=== PATIENT | male | born 1970 | race Caucasian/White ===

== ENCOUNTER 2022-02-28 18:32 | Inpatient (IN) | payer MEDICAID ==
[~2022-02-28] VITALS: Ht 167.6 cm; Wt 72.6 kg
[~2022-02-28 18:32] MED LIST: CLIN-142 PO; GLIP10TA11 PO; LISI-209 PO; METF-518 PO
[2022-02-28 18:45] VITALS: BP_SYST 161
--- NOTE | 2022-02-28 19:02 | NUR ---
Patient BIB self, patient states he has had testicle swelling and penile swelling x 3 days. Patient has PMH DM, HTN. Placed onto monitor AOx4 in no acute distress.
--- NOTE | 2022-02-28 19:04 | NUR ---
#20G PIV to Left AC
--- NOTE | 2022-02-28 19:04 | NUR ---
Labs drawn and sent to lab
--- NOTE | 2022-02-28 19:06 | NUR ---
Closing Note Report given to incoming NOC RN, all cares endorsed.
--- NOTE | 2022-02-28 19:09 | NUR ---
Xray at bedside
[2022-02-28 19:16] LABS: BASOPHILS # (AUTO) 0.1 K/uL (0.0-0.2); EOSINOPHILS # (AUTO) 0.3 K/uL (0.0-0.4); EOSINOPHILS % (AUTO) 5.4 % (0.0-4.0); HEMATOCRIT 24.1 % (36-54); HEMOGLOBIN 8.2 g/dL (14.0-18.0); LYMPHOCYTES # (AUTO) 0.9 K/uL (1.0-5.5); LYMPHOCYTES % (AUTO) 14.6 % (20.5-51.5); MEAN CORPUSCULAR HEMOGLOBIN 29 pg (27-31); MEAN CORPUSCULAR HGB CONC 34 % (32-36); MEAN CORPUSCULAR VOLUME 85 fL (79.0-98.0); MONOCYTES # (AUTO) 0.8 K/uL (0.0-1.0); MONOCYTES % (AUTO) 12.9 % (1.7-9.3); NEUTROPHILS % (AUTO) 66.1 % (40.0-70.0); PLATELET COUNT (AUTO) 341 K/uL (130-430); RED BLOOD CELL COUNT(AUTO) 2.86 MIL/uL (4.2-6.2); RED CELL DISTRIBUTION WIDTH 15.7 % (9.0-15.0)
[2022-02-28 19:25] LABS: ANION GAP 4 (5-15); CALCIUM 8.3 mg/dL (8.4-11.0); CHLORIDE 100 mmol/L (98-107); CREATININE 2.16 mg/dL (0.55-1.30); GLUCOSE 254 mg/dL (70-99); POTASSIUM 4.3 mmol/L (3.5-5.1); UREA NITROGEN, BLOOD 25 mg/dL (8-21)
[2022-02-28 19:27] LABS: GFR AFRICAN AMERICAN 42 mL/min (>90)
[2022-02-28 19:34] LABS: ALANINE AMINOTRANSFERASE 49 U/L (12-78); ALBUMIN 2.3 g/dL (3.4-4.8); ASPARTATE AMINOTRANSFERASE 19 U/L (10-37); TOTAL BILIRUBIN 0.1 mg/dL (0.0-1.0)
--- NOTE | 2022-02-28 19:50 | NUR ---
ER at bedside examining patient.
--- NOTE | 2022-02-28 21:21 | NUR ---
ADMITTING ORDERS RECIEVED FR DR CATALAN VIA TELEPHONE. NOTEED & CARRIED OUT.
[2022-02-28] MEDS ORDERED: DEXTROSE 50% JECT 50 ML DISP.SYRIN IVP PRN (23:00)
--- NOTE | 2022-02-28 23:12 | NUR ---
Patient will be admitted to care of [facility]. Admitted to TELEMETRY unit. Will go to room 129B. Belongings list completed. Complete and up to date summary report printed. SBAR report given TO ISA EDGE at bedside with opportunity for questions.
[2022-02-28] MEDS ORDERED: ACETAMINOPHEN 325 MG TABLET PO PRN (23:45)
[2022-03-01] VITALS (7 sets, daily range): BP systolic 148–161
[2022-03-01] MEDS ORDERED: ONDANSETRON HCL 4 MG/2 ML VIAL IVP PRN
[2022-03-01] MEDS ORDERED: NALOXONE HCL 0.4 MG/ML AMP (NARCAN) IVP PRN ×2
[2022-03-01] MEDS ORDERED: HYDROcodone/ACETAMIN 5-325 MG TAB (NORCO/ VICODIN) PO PRN
[2022-03-01] MEDS ORDERED: HYDROcodone/ACETAMIN 10-325 MG TAB PO PRN
[2022-03-01] MEDS ORDERED: TEMAZEPAM 15 MG CAPSULE PO PRN
[2022-03-01] MEDS ORDERED: PIPERACILLIN/TAZOBACTAM 2.25 GM VIAL IV ONE (00:23)
[2022-03-01] MEDS: PIPERACILLIN/TAZO 2.25G/DEX-IS 50 ML IV SCH ×5 (00:42→23:14)
--- NOTE | 2022-03-01 01:48 | NUR ---
CONSULTATION PAGED/CALLED Reason for Consultation: CHF Person Who was Notified:SORIN Consulting Physician: ZAINAB Auto Carrier Driver Specialty: Ordering Physician: HOSSEIN
--- NOTE | 2022-03-01 01:54 | NUR ---
CONSULTATION PAGED/CALLED Reason for Consultation: TESTICULAR INFECTION Person Who was Notified: SORIN Consulting Physician: Ranjith READ Six Sigma Project Manager Specialty: Ordering Physician: HOSSEIN
--- NOTE | 2022-03-01 01:56 | NUR ---
CONSULTATION PAGED/CALLED Reason for Consultation: RENAL FAILURE Person Who was Notified: SORIN Consulting Physician: EVI Whitfield Specialty: Ordering Physician: HOSSEIN Addendum: 03/01/22 at 0203 by Yadira Vogt CNA SPOKE WITH JODY
[2022-03-01 05:51] LABS: BILIRUBIN,URINE NEGATIVE (NEGATIVE); BLOOD, URINE 1+ (NEGATIVE); CLARITY/URINE CLEAR (CLEAR); COLOR,URINE YELLOW (YELLOW); GLUCOSE,URINE 1+ (NEGATIVE); KETONES,URINE NEGATIVE (NEGATIVE); LEUKOCYTE ESTERASE ,URINE NEGATIVE (NEGATIVE); NITRITE, URINE NEGATIVE (NEGATIVE); PROTEIN URINE 1+ (NEGATIVE); UROBILINOGEN,URINE 0.2 (0.2-1.0)
[2022-03-01 06:13] LABS: BARBITURATE, URINE NEGATIVE (NEG <=200); BENZODIAZEPINE, URINE NEGATIVE (NEG <=150); CANNABINOID, URINE NEGATIVE (NEG <=50); COCAINE, URINE NEGATIVE (NEG <=150); METHAMPHETAMINES SCREEN,URINE NEGATIVE (NEG <=500); OPIATE, URINE NEGATIVE (NEG <=100); PHENCYCLIDINE SCREEN,URINE NEGATIVE (NEG <=25); UR TRICYCLIC ANTIDEPRESSANTS NEGATIVE (NEG <=300); URINE AMPHETAMINE NEGATIVE (NEG <=500); URINE METHADONE NEGATIVE (NEG <=200); URINE OXYCODONE SCREEN NEGATIVE (NEG <=100); URINE PROPOXYPHENE SCREEN NEGATIVE (NEG <=300)
[2022-03-01 06:16] LABS: BACTERIA,URINE RARE /HPF (None Seen); RBC,URINE 0-3 /HPF (0-3); WBC,URINE 0-3 /HPF (0-3)
[2022-03-01 06:17] LABS: MUCUS,URINE 1+ /LPF (None Seen)
[2022-03-01 06:35] LABS: BASOPHILS % (AUTO) 0.8 % (0.0-2.0); EOSINOPHILS # (AUTO) 0.3 K/uL (0.0-0.4); EOSINOPHILS % (AUTO) 5.8 % (0.0-4.0); HEMATOCRIT 23.1 % (36-54); HEMOGLOBIN 7.9 g/dL (14.0-18.0); LYMPHOCYTES # (AUTO) 0.8 K/uL (1.0-5.5); LYMPHOCYTES % (AUTO) 16.9 % (20.5-51.5); MEAN CORPUSCULAR HEMOGLOBIN 29 pg (27-31); MEAN CORPUSCULAR HGB CONC 34 % (32-36); MEAN CORPUSCULAR VOLUME 84 fL (79.0-98.0); MONOCYTES # (AUTO) 0.7 K/uL (0.0-1.0); MONOCYTES % (AUTO) 13.8 % (1.7-9.3); NEUTROPHILS # (AUTO) 3.1 K/uL (1.8-7.7); NEUTROPHILS % (AUTO) 62.7 % (40.0-70.0); PLATELET COUNT (AUTO) 324 K/uL (130-430); RED BLOOD CELL COUNT(AUTO) 2.74 MIL/uL (4.2-6.2); RED CELL DISTRIBUTION WIDTH 15.7 % (9.0-15.0)
[2022-03-01] MEDS: INSULIN REGULAR, HUMAN 100 UNITS/ML, 3 ML VIAL (humuLIN R) SUBCUT PRN ×3 (06:38→22:33)
[2022-03-01 07:00] LABS: CREATININE 2.22 mg/dL (0.55-1.30); POTASSIUM 4.1 mmol/L (3.5-5.1)
[2022-03-01 07:04] LABS: PROTHROMBIN TIME 10.3 SECS (9.5-12.5)
[2022-03-01 07:16] LABS: ALBUMIN 2.1 g/dL (3.4-4.8); FREE T4 (FREE THYROXINE) 0.9 ng/dl (0.8-1.5); PHOSPHORUS 4.3 mg/dL (2.7-4.5); THYROID STIMULATING HORMONE 3.04 uIu/mL (0.36-3.74); TOTAL BILIRUBIN 0.2 mg/dL (0.0-1.0)
[2022-03-01 07:34] LABS: TOTAL IRON BIND. CAPACITY 189 ug/dL (250-450)
--- NOTE | 2022-03-01 07:40 | NUR ---
OPEN NOTE Patient resting in bed. No notable signs of pain, distress or sob. Patient on room air with saturations at 95%. IV to L hand 20 G SL, patent. Patient will have CAT scan today around 8am. All needs met at this time, bed locked in lowest position, call light within reach, will continue to monitor.
[2022-03-01] MEDS: CLINDAMYCIN HCL 150 MG CAPSULE PO SCH ×3 (08:46→22:31)
--- NOTE | 2022-03-01 12:15 | NUR ---
PATIENT ROUNDS Patient resting in bed. No notable signs of pain, distress or sob. Patient on room air with saturations at 95%. IV to L hand 20 G SL, patent. All needs met at this time, bed locked in lowest position, call light within reach, will continue to monitor.
--- NOTE | 2022-03-01 15:56 | NUR ---
PATIENT ROUNDS Patient resting in bed. No notable signs of pain, distress or sob. Patient on room air with saturations at 95%. IV to L hand 20 G SL, patent. MD Dill asked for a baddler scan which was done and less than 182ml of urine noted in bladder. MD was made aware and no new orders given. All needs met at this time, bed locked in lowest position, call light within reach, will continue to monitor.
--- NOTE | 2022-03-01 16:45 | NUR ---
Wound Dressings Wound Dressings changed to bilateral lower legs.
[2022-03-01] MEDS: NACL 0.9% 1,000 ML IV SCH (16:52)
--- NOTE | 2022-03-01 18:53 | NUR ---
CLOSING NOTE Patient resting in bed. No notable signs of pain, distress or sob. Patient on room air with saturations at 95%. IV to L hand 20 G on infusion pump. All needs met at this time, bed locked in lowest position, call light within reach, will endorse to nightshift nurse.
--- NOTE | 2022-03-01 21:00 | NUR ---
URINE COLLECTED & SENT TO LAB / .
[2022-03-02 02:36] VITALS: BP_SYST 145
--- NOTE | 2022-03-02 03:23 | NUR ---
WOUND CARE implemented Left & Right lower legs multiple open tissue areas cleansed with NSS foam dressings applied / monitor .
[2022-03-02] MEDS: PIPERACILLIN/TAZO 2.25G/DEX-IS 50 ML IV SCH ×3 (06:05→18:31)
[2022-03-02 06:52] LABS: BASOPHILS # (AUTO) 0.1 K/uL (0.0-0.2); BASOPHILS % (AUTO) 1.1 % (0.0-2.0); EOSINOPHILS # (AUTO) 0.3 K/uL (0.0-0.4); EOSINOPHILS % (AUTO) 5.3 % (0.0-4.0); HEMATOCRIT 22.6 % (36-54); HEMOGLOBIN 7.9 g/dL (14.0-18.0); LYMPHOCYTES # (AUTO) 0.9 K/uL (1.0-5.5); LYMPHOCYTES % (AUTO) 16.8 % (20.5-51.5); MEAN CORPUSCULAR HEMOGLOBIN 29 pg (27-31); MEAN CORPUSCULAR HGB CONC 35 % (32-36); MEAN CORPUSCULAR VOLUME 84 fL (79.0-98.0); MONOCYTES # (AUTO) 0.6 K/uL (0.0-1.0); MONOCYTES % (AUTO) 12.1 % (1.7-9.3); NEUTROPHILS # (AUTO) 3.4 K/uL (1.8-7.7); NEUTROPHILS % (AUTO) 64.7 % (40.0-70.0); PLATELET COUNT (AUTO) 333 K/uL (130-430); RED BLOOD CELL COUNT(AUTO) 2.71 MIL/uL (4.2-6.2); RED CELL DISTRIBUTION WIDTH 15.5 % (9.0-15.0); WHITE BLOOD COUNT (AUTO) 5.3 K/uL (4.8-10.8)
[2022-03-02 07:02] LABS: CREATININE 2.15 mg/dL (0.55-1.30); PHOSPHORUS 4.6 mg/dL (2.7-4.5); POTASSIUM 4.2 mmol/L (3.5-5.1)
[2022-03-02 07:40] VITALS: BP_SYST 154
--- NOTE | 2022-03-02 07:40 | NUR ---
OPEN NOTE Patient resting in bed. No notable signs of pain, distress or sob. Patient on room air with saturations at 95%. IV to L hand 20 G infusion pump, patent. Call light within reach, bed locked in lowest position, all needs met, will continue to monitor.
[2022-03-02] MEDS: NACL 0.9% 1,000 ML IV SCH ×2 (07:54→21:23)
[2022-03-02] MEDS: CLINDAMYCIN HCL 150 MG CAPSULE PO SCH ×3 (08:34→21:22)
--- NOTE | 2022-03-02 10:50 | NUR ---
Dietitian Recommendations * Continue [facility] diet per MD order * Consider Glucerna BID ONS to supplement diet * Consider multivitamin, vitamin C to support healing * Check A1c PS, RD
[2022-03-02] MEDS: INSULIN REGULAR, HUMAN 100 UNITS/ML, 3 ML VIAL (humuLIN R) SUBCUT PRN ×3 (11:37→21:28)
[2022-03-02 12:00] VITALS: BP_SYST 145
--- NOTE | 2022-03-02 12:10 | NUR ---
PATIENT ROUNDS Patient resting in bed. No notable signs of pain, distress or sob. Patient on room air with saturations at 95%. IV to L hand 20 G on infusion pump, patent. All needs met at this time, bed locked in lowest position, call light within reach, will continue to monitor.
[2022-03-02 15:50] VITALS: BP_SYST 158
[2022-03-02] MEDS ORDERED: SOD FERRIC GLUC COMPLEX/SUC 125 MG in NS 100 ML IV SCH (17:00)
[2022-03-02] MEDS ORDERED: EPOETIN ALFA-EPBX 4,000 UNITS/ML VIAL SUBCUT SCH (17:00)
[2022-03-02 21:00] VITALS: BP_SYST 144
[2022-03-02] MEDS: LACTOBACILLUS RHAMNOSUS GG 1 CAP CAPSULE PO SCH (21:22)
--- NOTE | 2022-03-02 22:24 | NUR ---
Patient awake alert Family @ the bedside PT on room air chest movement symmetrical HOB elevated 02 SAT 95 %
[2022-03-03] MEDS: PIPERACILLIN/TAZO 2.25G/DEX-IS 50 ML IV SCH (00:25)
[2022-03-03 01:00] VITALS: BP_SYST 154
--- NOTE | 2022-03-03 03:28 | NUR ---
wound care implemented to both lower legs open skin areas , patient awake alert does ambulate & has history of Diabetes continue to monitor / .
--- NOTE | 2022-03-03 04:25 | NUR ---
PHONED PAGED DR Ranjith READ FOR LEVAQUIN PO CLARIFICATION .
--- NOTE | 2022-03-03 04:47 | NUR ---
spoke with DR JACEK BYRD , GIVE LEVAQUIN 250 MG PO DAILY FOR SEVEN DAYS ON DISCHARGE .
--- NOTE | 2022-03-03 04:49 | NUR ---
Patient using URINAL NEEDED NO DIFFICULTY clear yellow urine noted , tolerating .
[2022-03-03] MEDS: INSULIN REGULAR, HUMAN 100 UNITS/ML, 3 ML VIAL (humuLIN R) SUBCUT PRN (06:12)
[2022-03-03 06:56] LABS: BASOPHILS # (AUTO) 0.1 K/uL (0.0-0.2); BASOPHILS % (AUTO) 1.5 % (0.0-2.0); EOSINOPHILS # (AUTO) 0.3 K/uL (0.0-0.4); EOSINOPHILS % (AUTO) 5.4 % (0.0-4.0); HEMATOCRIT 23.7 % (36-54); HEMOGLOBIN 8.1 g/dL (14.0-18.0); LYMPHOCYTES # (AUTO) 0.8 K/uL (1.0-5.5); LYMPHOCYTES % (AUTO) 15.6 % (20.5-51.5); MEAN CORPUSCULAR HEMOGLOBIN 29 pg (27-31); MEAN CORPUSCULAR HGB CONC 34 % (32-36); MEAN CORPUSCULAR VOLUME 84 fL (79.0-98.0); MONOCYTES # (AUTO) 0.8 K/uL (0.0-1.0); MONOCYTES % (AUTO) 14.8 % (1.7-9.3); NEUTROPHILS # (AUTO) 3.3 K/uL (1.8-7.7); NEUTROPHILS % (AUTO) 62.7 % (40.0-70.0); PLATELET COUNT (AUTO) 342 K/uL (130-430); RED BLOOD CELL COUNT(AUTO) 2.83 MIL/uL (4.2-6.2); RED CELL DISTRIBUTION WIDTH 15.5 % (9.0-15.0); WHITE BLOOD COUNT (AUTO) 5.3 K/uL (4.8-10.8)
[2022-03-03 07:12] LABS: CALCIUM 8.2 mg/dL (8.4-11.0); CREATININE 2.18 mg/dL (0.55-1.30); POTASSIUM 3.8 mmol/L (3.5-5.1)
[2022-03-03] MEDS ORDERED: NEPHROVITE, (FOLIC ACID/VITAMIN B COMP W-C 1 TAB) PO SCH (09:00)
[2022-03-03] MEDS: LACTOBACILLUS RHAMNOSUS GG 1 CAP CAPSULE PO SCH (09:23)
[2022-03-03] MEDS: CLINDAMYCIN HCL 150 MG CAPSULE PO SCH ×2 (09:23→15:32)
[2022-03-03] MEDS ORDERED: levoFLOXacin 500 MG TABLET PO ONE (10:00)
[2022-03-03 12:34] VITALS: BP_SYST 159
--- NOTE | 2022-03-03 13:13 | NUR ---
Supervisor Smoke Control AIR FILLER recevied a referral from to see pt. for compliance with meds, after care and his family life situation. AIR FILLER used the [employer] for translation. Pt. was pleasant, informative and a good historian. Pt. stated from his last admittance in January, he was able to find follow up doctors care at [facility] in [place] on [address]. Pt. stated he just needed to go for follow up care one time. Pt. confirmed that his and daughter provided him with wound care twice daily. Pt. stated when he went to the doctors the clinic on Thursday, the doctor advised him to go to the hospital. AIR FILLER asked pt. how he was feeling. Pt. stated he was feeling better. AIR FILLER educated pt. on decreasing his chances of being readmitted. AIR FILLER asked pt. to keep up with his follow up apts. , take all meds as prescribed and follow a good eating regimen. Addendum: 03/03/22 at 1423 by Florina Richard AIR FILLER Supervisor Smoke Control AIR FILLER asked pt. in detail if he was taking all of his meds. Pt. stated he was and the doctor stated take all 3 meds and if you do well, you don't have to use insulin. Pt. stated he was taking all 3 meds, but when he called the pharmacy to get another med. he could not because they did not have the prescription at the time. When he called to follow up, he could not get a hold of anyone. AIR FILLER asked pt about his income. 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 Pt. is anemic and malnourished. Pt. was open to food [employer] resources and stated he would eat better. Pt. also needs a letter for work. AIR FILLER spoke to [place] to let her know pt. is confused. Pt stated he does not need insulin because said he needs to try these 3 meds and if he does well he does not need insulin. AIR FILLER asked Rn and to speak to pt. with the [employer] translation service. AIR FILLER shared pts. resources needs with pt to KAYCEE Dasilva who will assist.
[2022-03-03] MEDS: NACL 0.9% 1,000 ML IV SCH (15:21)
[2022-03-03 16:06] VITALS: BP_SYST 150
[2022-03-03 17:07] VITALS: BP_SYST 158
--- NOTE | 2022-03-03 17:43 | NUR ---
PATIENT DC ASSISTED BY HIS . ALL BELONGINGS TAKEN WITH THE PATIENT.
--- NOTE | 2022-03-04 08:36 | NUR ---
Dispo code 01
[2022-03-04] MEDS ORDERED: levoFLOXacin 250 MG TABLET PO SCH (09:00)
== END 2022-03-03 17:43 | disposition home or self-care (01) | DRG 501 ==
LOC: SED 18:32 → STU 21:17
PROVIDERS: ADMIT Internal Medicine; ATTEND Internal Medicine
DX: N45.3 Epididymo-orchitis (principal); N17.0 Acute kidney failure with tubular necrosis; E43 Unspecified severe protein-calorie malnutrition; D63.8 Anemia in other chronic diseases classified elsewhere; I13.0 Hypertensive heart and chronic kidney disease with heart failure and stage 1 through stage 4 chronic kidney disease, or unspecified chronic kidney disease; I50.30 Unspecified diastolic (congestive) heart failure; Z20.822 Contact with and (suspected) exposure to COVID-19; E11.22 Type 2 diabetes mellitus with diabetic chronic kidney disease; E11.65 Type 2 diabetes mellitus with hyperglycemia; K21.9 Gastro-esophageal reflux disease without esophagitis; E11.21 Type 2 diabetes mellitus with diabetic nephropathy; J91.8 Pleural effusion in other conditions classified elsewhere; N18.30 Chronic kidney disease, stage 3 unspecified; N13.9 Obstructive and reflux uropathy, unspecified; N31.9 Neuromuscular dysfunction of bladder, unspecified; Z68.25 Body mass index [BMI] 25.0-25.9, adult; Z79.899 Other long term (current) drug therapy; Z79.84 Long term (current) use of oral hypoglycemic drugs
CPT/HCPCS: 36415; 71045; 71250-TC; 76376; 76770; 76870-TC; 80048; 80053; 80061; 80307; 81000; 82043; 82550; 82570; 82607; 82962; 82977; 83036; 83540; 83550; 83605; 83735; 83880; 84100; 84302; 84439; 84443; 84484; 85025; 85610-TC; 85730-TC; 87040; 87081; 87086; 93005; 93306; 99285; G0378; J1815; J2543; J2916; Q5106

== ENCOUNTER 2022-03-19 18:53 | Inpatient (IN) | payer MEDICAID ==
[~2022-03-19] VITALS: Ht 182.9 cm; Wt 63.3 kg
--- NOTE | 2022-03-19 18:55 | NUR ---
Placed in room 01 . Placed on monitoring and evaluation advisor, blood pressure machine and pulse oximeter. To gown for exam. Side rails up. Report given to Riky MOSS .
[2022-03-19 19:00] VITALS: BP_SYST 188
--- NOTE | 2022-03-19 19:10 | NUR ---
MD DR LEWIS AT BEDSIDE
--- NOTE | 2022-03-19 19:21 | NUR ---
PT BIB FAMILY AWAKE AND ALTERED. AO X0. NO SOB. FAMILY STATES PT WAS SHAKEY AND ALTERED. ONE EPIOSODE OF VOMITING. NO KO. PT HAS HISTORY OF DM2, ON METFORMIN ONLY. UPON ARRIVAL BS WAS TOO ELEVATOR FOR GLUCOMETER TO REGISTER. BS WILL BE DRAWN BY LAB. BLOOD AND CULTURE TAKEN AT BEDSIDE.
--- NOTE | 2022-03-19 19:25 | NUR ---
PT HAS MULTIPLE SCABS ON BLE. OPEN WOUND ON LEFT LOWER EXTREMITY
[2022-03-19 19:30] LABS: BASOPHILS # (AUTO) 0.1 K/uL (0.0-0.2); BASOPHILS % (AUTO) 0.9 % (0.0-2.0); EOSINOPHILS # (AUTO) 0.3 K/uL (0.0-0.4); EOSINOPHILS % (AUTO) 3.9 % (0.0-4.0); HEMOGLOBIN 10.2 g/dL (14.0-18.0); LYMPHOCYTES % (AUTO) 13.9 % (20.5-51.5); MEAN CORPUSCULAR HEMOGLOBIN 29 pg (27-31); MEAN CORPUSCULAR HGB CONC 34 % (32-36); MEAN CORPUSCULAR VOLUME 86 fL (79.0-98.0); MONOCYTES # (AUTO) 0.6 K/uL (0.0-1.0); MONOCYTES % (AUTO) 8.2 % (1.7-9.3); NEUTROPHILS # (AUTO) 5.1 K/uL (1.8-7.7); NEUTROPHILS % (AUTO) 73.1 % (40.0-70.0); PLATELET COUNT (AUTO) 232 K/uL (130-430); RED CELL DISTRIBUTION WIDTH 16.5 % (9.0-15.0)
[2022-03-19] MEDS ORDERED: INSULIN REGULAR, HUMAN 10 UNITS/0.1 ML, 3 ML VIAL IVP ONE (19:30)
[2022-03-19] MEDS ORDERED: NACL 0.9% 1,000 ML IV ONE (19:30)
--- NOTE | 2022-03-19 19:40 | NUR ---
Pt off the unit for CT
[2022-03-19 19:42] LABS: BILIRUBIN,URINE NEGATIVE (NEGATIVE); BLOOD, URINE 2+ (NEGATIVE); CLARITY/URINE CLEAR (CLEAR); COLOR,URINE YELLOW (YELLOW); GLUCOSE,URINE 3+ (NEGATIVE); KETONES,URINE NEGATIVE (NEGATIVE); LEUKOCYTE ESTERASE ,URINE NEGATIVE (NEGATIVE); NITRITE, URINE NEGATIVE (NEGATIVE); PROTEIN URINE 2+ (NEGATIVE); UROBILINOGEN,URINE 0.2 (0.2-1.0)
--- NOTE | 2022-03-19 19:42 | NUR ---
PT TAKEN TO CT
[2022-03-19 19:46] LABS: ANION GAP 8 (5-15); CHLORIDE 93 mmol/L (98-107); CREATININE 2.46 mg/dL (0.55-1.30); UREA NITROGEN, BLOOD 26 mg/dL (8-21)
[2022-03-19 19:46] LABS: PROTHROMBIN TIME 10.1 SECS (9.5-12.5)
--- NOTE | 2022-03-19 19:50 | NUR ---
Clemencia ziegler in ED - 03/19/22 at 1956 by [email or web address] Pt returned from CT, stable, will cont to monitor
[2022-03-19 19:51] LABS: BACTERIA,URINE None Seen /HPF (None Seen); MUCUS,URINE None Seen /LPF (None Seen); WBC,URINE 0-3 /HPF (0-3)
--- NOTE | 2022-03-19 19:55 | NUR ---
PT BACK FROM CT. FAMILY AT BEDSIDE.
[2022-03-19 19:56] LABS: BARBITURATE, URINE NEGATIVE (NEG <=200); BENZODIAZEPINE, URINE NEGATIVE (NEG <=150); CANNABINOID, URINE NEGATIVE (NEG <=50); COCAINE, URINE NEGATIVE (NEG <=150); METHAMPHETAMINES SCREEN,URINE NEGATIVE (NEG <=500); OPIATE, URINE NEGATIVE (NEG <=100); PHENCYCLIDINE SCREEN,URINE NEGATIVE (NEG <=25); UR TRICYCLIC ANTIDEPRESSANTS NEGATIVE (NEG <=300); URINE AMPHETAMINE NEGATIVE (NEG <=500); URINE METHADONE NEGATIVE (NEG <=200); URINE OXYCODONE SCREEN NEGATIVE (NEG <=100); URINE PROPOXYPHENE SCREEN NEGATIVE (NEG <=300)
[2022-03-19 20:02] LABS: ALANINE AMINOTRANSFERASE 22 U/L (12-78); ALBUMIN 3.3 g/dL (3.4-4.8); ASPARTATE AMINOTRANSFERASE 16 U/L (10-37); C-REACTIVE PROTEIN QUANT 1.2 mg/dL (0-0.5); TOTAL BILIRUBIN 0.2 mg/dL (0.0-1.0)
[2022-03-19 20:03] LABS: GFR AFRICAN AMERICAN 36 mL/min (>90); GLUCOSE 701 mg/dL (70-99)
[2022-03-19 20:04] LABS: ACETAMINOPHEN < 1 ug/mL (1-30); ALCOHOL, BLOOD < 3 mg/dL (<10)
--- NOTE | 2022-03-19 20:14 | NUR ---
MD DR LEWIS AWARE OF WOUND ON R LEG, ORDER FOR BACTITRACIN AND DRESSING CHANGE CARRIED OUT BY EMT.
[2022-03-19] MEDS ORDERED: BACITRACIN 1 GM OINT TP ONE (20:18)
[2022-03-19 20:32] LABS: ACETONE, SERUM NEGATIVE (NEGATIVE)
--- NOTE | 2022-03-19 20:48 | NUR ---
Admit bed requested Patient will be admitted to care of Dr Mccarthy.. Admitted to Tele unit. Diagnosis Diabetes,Pneumonia Inpatient (Yes or No) yes Observation (Yes or No) No Orientation concerns or request close to nursing station (Yes or No) Yes Covid Status pending On vent or bipap , N/A Isolation requirements N/A Needs a sitter N/A From Home (Yes or if No enter name of facility) YES Requires Dialysis (Yes or No) No Med Rec Completed (Yes of No) unknown
[2022-03-19] MEDS ORDERED: cloNIDine HCL 0.1 MG TABLET PO PRN (21:15)
[2022-03-19] MEDS ORDERED: NALOXONE HCL 0.4 MG/ML AMP (NARCAN) IVP PRN ×2 (22:00)
[2022-03-19] MEDS: NORMAL SALINE 5 ML DISP.SYRIN IVF SCH (22:00)
[2022-03-19] MEDS ORDERED: ONDANSETRON HCL 4 MG/2 ML VIAL IVP PRN (22:00)
[2022-03-19] MEDS ORDERED: HYDROcodone/ACETAMIN 10-325 MG TAB PO PRN (22:00)
[2022-03-19] MEDS ORDERED: HYDROcodone/ACETAMIN 5-325 MG TAB (NORCO/ VICODIN) PO PRN (22:00)
[2022-03-19] MEDS ORDERED: ACETAMINOPHEN 325 MG TABLET PO PRN (22:00)
[2022-03-19] MEDS: NACL 0.9% 1,000 ML IV SCH (22:00)
--- NOTE | 2022-03-19 22:46 | NUR ---
Patient will be admitted to care of DR HERNANDEZ. Admitted to TELE unit. Will go to room 105A. Belongings list completed. Complete and up to date summary report printed. SBAR report to be given at bedside with opportunity for questions.
[2022-03-19 22:48] VITALS: BP_SYST 179
--- NOTE | 2022-03-19 22:50 | NUR ---
ADMISSION NOTE Received patient from ER via gurney. Patient admitted with diagnosis of DIABETES, PNEUMONIA. Patient is awake, alert, oriented X 1.Patient oriented to hospital room, call light, toileting, pain management and safety-teach back done. Patient informed that their room number is 105A. Personal belongings checked and Belongings List documented. Call light within reach.
[2022-03-19 22:53] VITALS: BP_SYST 179
--- NOTE | 2022-03-19 23:13 | NUR ---
SHELLY HARTLEY (SON) CELL# [phone]
[2022-03-19] MEDS ORDERED: FLU VACC QS2022-23(6MOS UP)/PF 0.5 ML/SYR SYRINGE I.M. PRN (23:15)
[2022-03-20] VITALS (19 sets, daily range): BP systolic 111–170
--- NOTE | 2022-03-20 00:19 | NUR ---
PAGED : DR Jacobo RAMOS CALLED TO NOTIFY THE PTS BP AND BS LEVEL ; PTS BS IS 500 PER PRIMARY RN . BP IS 182/101 , CALLED BACK , NOTIFIED MD PTS BP AND BS , ALSO INFORMED THAT PT RECEIVED CLONIDINE 0.2 MG IN THE ER AT 2118 AND INSULIN REGULAR IV 10 UNITS AT 1952 . ORDERED TO CHANGE ACCUCHECK Q6HRS AND START NOW THE COVERAGE PER ORDER ,VERIFIED WITH MD - PER ORDER PT WILL BE GETTING 12 UNITS OF REGULAR INSULIN SUBCUTANEOUS . ORDERED OK TO GIVE 12 UNITS REGULAR INSULIN SUBCUTANEOUS NOW. ALSO ORDERED HYDRALAZINE 50 MG PO Q6HRS FOR SBP ABOVE 150 , INFORMED MD THAT PT IS VERY CONFUSED AND MIGHT NOT BE ABLE TO TAKE PO AT THIS TIME . ORDERED HYDRALAZINE 10 MG IV PUSH Q6HRS PRN FOR SBP ABOVE 150 . BOTH ORDERS VERIFIED AGAIN WITH , ORDER ENTERED AND NOTIFIED PRIMARY RN .
[2022-03-20] MEDS: INSULIN REGULAR, HUMAN 100 UNITS/ML, 3 ML VIAL (humuLIN R) SUBCUT PRN ×2 (00:42→05:38)
[2022-03-20] MEDS: hydrALAZINE HCL 20 MG/ML VIAL IVP PRN ×2 (00:52→06:49)
--- NOTE | 2022-03-20 01:25 | NUR ---
PATIENT REMAIN CONFUSED, BLOOD SUGAR REMAIN UNDER CONTROL. PATIENT HAS BOWEL MOVEMENT. PATIENT TEMPERATURE IN 101.3
[2022-03-20 01:36] LABS: BASOPHILS # (AUTO) 0.1 K/uL (0.0-0.2); BASOPHILS % (AUTO) 0.8 % (0.0-2.0); EOSINOPHILS # (AUTO) 0.1 K/uL (0.0-0.4); EOSINOPHILS % (AUTO) 0.6 % (0.0-4.0); HEMATOCRIT 25.5 % (36-54); HEMOGLOBIN 8.7 g/dL (14.0-18.0); LYMPHOCYTES # (AUTO) 0.9 K/uL (1.0-5.5); LYMPHOCYTES % (AUTO) 9.3 % (20.5-51.5); MEAN CORPUSCULAR HEMOGLOBIN 29 pg (27-31); MEAN CORPUSCULAR HGB CONC 34 % (32-36); MEAN CORPUSCULAR VOLUME 85 fL (79.0-98.0); MONOCYTES # (AUTO) 0.6 K/uL (0.0-1.0); MONOCYTES % (AUTO) 6.5 % (1.7-9.3); NEUTROPHILS # (AUTO) 8.1 K/uL (1.8-7.7); NEUTROPHILS % (AUTO) 82.8 % (40.0-70.0); PLATELET COUNT (AUTO) 201 K/uL (130-430); RED BLOOD CELL COUNT(AUTO) 3.01 MIL/uL (4.2-6.2); RED CELL DISTRIBUTION WIDTH 16.4 % (9.0-15.0); WHITE BLOOD COUNT (AUTO) 9.8 K/uL (4.8-10.8)
[2022-03-20 01:57] LABS: CALCIUM 8.7 mg/dL (8.4-11.0); CREATININE 2.18 mg/dL (0.55-1.30); PHOSPHORUS 3.1 mg/dL (2.7-4.5)
[2022-03-20] MEDS ORDERED: ACETAMINOPHEN 650 MG SUPP.RECT RC PRN (02:00)
[2022-03-20] MEDS ORDERED: INSULIN GLARGINE 100 UNITS/ML, 10 ML VIAL SUBCUT ONE (02:00)
--- NOTE | 2022-03-20 02:13 | NUR ---
HIGH ALERT NOTE: Called Dr.A Mccarthy back at [phone] identified within the medical roster to verify physician authenticity.
[2022-03-20] MEDS ORDERED: PIPERACILLIN/TAZO 3.375/DEX-IS 50 ML IV SCH ×2 (04:30→06:45)
--- NOTE | 2022-03-20 05:00 | NUR ---
RECEIVED PATIENT FROM MENDEL MOSS. PATIENT IS LETHARGIC BUT WILL OPEN EYES TO HIS NAME BEING CALLED. TEMPERATURE WAS 99.7 AXILLARY AND BG 324. PATIENT HAS WOUNDS AND I WILL ENDORSE TO THE DAY SHIFT. FOAM DRESSING PLACED ON COCCYX FOR PREVENTIVE MEASURES, NO WOUND ON COCCYX. 2 L NC. LEFT AC 18G AND RIGHT AC 20 G, WITH NS RUNNING AT 100 ML/HR. PATIENT ON CCHO DIET. PATIENT HAS A PARR DRAINAGE TO GRAVITY. BED IS AT THE LOWEST LEVEL, BRAKES ARE LOCKED, SUCTION IS WORKING, 3 SIDE RAILS UP, CALL LIGHT WITHIN REACH. EDUCATED PATIENT NOT TO GET UP WITHOUT ASSISTS.
--- NOTE | 2022-03-20 05:22 | NUR ---
CONSULTATION PAGED/CALLED Reason for Consultation: CARYN Person Who was Notified: NICOLE Consulting Physician: ROSARIO Toll Test Desk Worker Specialty: Ordering Physician: RICHARD
--- NOTE | 2022-03-20 05:25 | NUR ---
GIVEN REPORT TO MERRY THE RN. I HAVE ALSO INFORMED THAT NURSE ABOUT PATIENT WOUNDS ON THE LEG NEEDS TO BE PHOTOGRAPH.
--- NOTE | 2022-03-20 05:29 | NUR ---
PT TRANSFERRED TO ICU BED 3 AND REPORT WAS GIVEN TO MERRY
--- NOTE | 2022-03-20 05:35 | NUR ---
CONSULTATION PAGED/CALLED Reason for Consultation: HYPERTENSION Person Who was Notified: DR. LANE VIA TEXT Consulting Physician: DR. LANE Center Machine Set Up Operator Specialty: CARDIO Ordering Physician: KELLY RAMOS
[2022-03-20] MEDS: NORMAL SALINE 5 ML DISP.SYRIN IVF SCH ×3 (05:39→21:45)
--- NOTE | 2022-03-20 05:57 | NUR ---
CONSULTATION PAGED/CALLED Reason for Consultation: DIABETIES, PNA Person Who was Notified: DR. VENTURA Consulting Physician: RINA QUINTANA Director Account Management Specialty: Ordering Physician: RICHARD
[2022-03-20] MEDS ORDERED: METF-381 PO (07:10)
[2022-03-20] MEDS ORDERED: POTASSIUM CHLORIDE 20 MEQ/PKT PACKET PO ONE (08:15)
[2022-03-20] MEDS ORDERED: METOPROLOL SUCCINATE 25 MG TAB.SR.24H (TOPROL XL) PO ONE (08:15)
[2022-03-20] MEDS ORDERED: amLODIPine BESYLATE 5 MG TABLET PO ONE (08:15)
[2022-03-20] MEDS ORDERED: POTASSIUM CHLORIDE 20 MEQ/PKT PACKET ONE (09:17)
[2022-03-20] MEDS ORDERED: TOPIRAMATE 25 MG TABLET(TOPAMAX) ONE (09:18)
[2022-03-20] MEDS: NACL 0.9% 1,000 ML IV SCH ×2 (09:27→18:43)
[2022-03-20] MEDS: AZITHROMYCIN 500 MG in NS 250 ML IV SCH (14:16)
--- NOTE | 2022-03-20 15:02 | NUR ---
Called Dr. Veronica Mahmood with a consult, he will be here today after 1700
--- NOTE | 2022-03-20 18:51 | NUR ---
BOB MYLES REGISTRY NURSE IS IN CHARGE OF THIS PATIENT/PT IS SLIGHTLY DISORIENTED/BUT FOLLOWS COMMANDS AND SMILING/VS STABLE, AFEBRILE BUT 3 LARGE WOUNDS ON RIGHT LEG/PT WOUNDS CLEANED, DRESSED AND PHOTOGRAPHED/PT SAYS HE GOT THEM FROM SCRATCHING//MW
[2022-03-20] MEDS ORDERED: LEVOFLOXACIN 250 MG/D5W 50 ML IV SCH (21:00)
[2022-03-21] VITALS (20 sets, daily range): BP systolic 112–165
--- NOTE | 2022-03-21 03:30 | NUR ---
CHANGE IN CAREGIVER Leti to assume care of Pt.
[2022-03-21 06:58] LABS: BASOPHILS # (AUTO) 0.1 K/uL (0.0-0.2); BASOPHILS % (AUTO) 0.7 % (0.0-2.0); EOSINOPHILS # (AUTO) 0.2 K/uL (0.0-0.4); EOSINOPHILS % (AUTO) 2.9 % (0.0-4.0); HEMATOCRIT 25.7 % (36-54); HEMOGLOBIN 8.8 g/dL (14.0-18.0); LYMPHOCYTES % (AUTO) 12.8 % (20.5-51.5); MEAN CORPUSCULAR HEMOGLOBIN 29 pg (27-31); MEAN CORPUSCULAR HGB CONC 34 % (32-36); MEAN CORPUSCULAR VOLUME 84 fL (79.0-98.0); MONOCYTES # (AUTO) 0.8 K/uL (0.0-1.0); MONOCYTES % (AUTO) 10.1 % (1.7-9.3); NEUTROPHILS # (AUTO) 5.7 K/uL (1.8-7.7); NEUTROPHILS % (AUTO) 73.5 % (40.0-70.0); PLATELET COUNT (AUTO) 190 K/uL (130-430); RED BLOOD CELL COUNT(AUTO) 3.07 MIL/uL (4.2-6.2); RED CELL DISTRIBUTION WIDTH 16.8 % (9.0-15.0); WHITE BLOOD COUNT (AUTO) 7.8 K/uL (4.8-10.8)
[2022-03-21 07:02] LABS: ALBUMIN 2.4 g/dL (3.4-4.8); C-REACTIVE PROTEIN QUANT 0.8 mg/dL (0-0.5); CALCIUM 8.1 mg/dL (8.4-11.0); CREATININE 1.73 mg/dL (0.55-1.30); PHOSPHORUS 3.8 mg/dL (2.7-4.5); TOTAL BILIRUBIN 0.2 mg/dL (0.0-1.0)
--- NOTE | 2022-03-21 07:20 | NUR ---
Opening Received report on pt. Pt AOx3, with confusion, in no signs of pain or distress on room air. IV site intact, patent, no infiltration noted. Dale in place draining urine to gravity, incontinent of bowel.
[2022-03-21] MEDS: NORMAL SALINE 5 ML DISP.SYRIN IVF SCH ×3 (08:02→21:16)
[2022-03-21] MEDS: METOPROLOL SUCCINATE 25 MG TAB.SR.24H (TOPROL XL) PO SCH (08:10)
[2022-03-21] MEDS: NACL 0.9% 1,000 ML IV SCH ×3 (08:14→23:01)
[2022-03-21] MEDS ORDERED: amLODIPine BESYLATE 5 MG TABLET PO ONE (08:15)
[2022-03-21 08:50] LABS: ERYTHROCYTE SEDIMENTATION RATE 23 MM/HR (0-15)
[2022-03-21] MEDS: cloNIDine HCL 0.1 MG TABLET PO SCH ×2 (08:53→21:23)
[2022-03-21] MEDS ORDERED: amLODIPine BESYLATE 5 MG TABLET PO SCH (09:00)
--- NOTE | 2022-03-21 09:02 | NUR ---
Page out to Dr. Mao for critical potassium 2.9. Spoke with exchange.
[2022-03-21] MEDS ORDERED: KCL 40 mEq in 100 mL (PREMIX) 100 ML IV ONE (09:30)
--- NOTE | 2022-03-21 09:30 | NUR ---
Dr. Mao and Dr. Mccarthy rounding on pt. Both aware of critical lab value, new orders made.
[2022-03-21] MEDS ORDERED: POTASSIUM CHLORIDE 40 MEQ, LIDOCAINE JECT 2% PF 100 MG 50 MG in NS 250 ML IV ONE (10:30)
[2022-03-21] MEDS ORDERED: POTASSIUM CHLORIDE 40 MEQ in NS 250 ML IV ONE (11:00)
[2022-03-21] MEDS: INSULIN REGULAR, HUMAN 100 UNITS/ML, 3 ML VIAL (humuLIN R) SUBCUT PRN ×2 (12:20→17:16)
[2022-03-21] MEDS: AZITHROMYCIN 500 MG in NS 250 ML IV SCH (13:11)
--- NOTE | 2022-03-21 14:00 | NUR ---
Wound care and dressing changes done, pt tolerated well.
--- NOTE | 2022-03-21 17:37 | NUR ---
Pt ambulate to toilet with steady gait.
--- NOTE | 2022-03-21 19:14 | NUR ---
Endorsed plan of care to oncoming RN.
--- NOTE | 2022-03-21 21:10 | NUR ---
Transferred patient to room 117B telemetry via gurney. Report given to Mackenzie RN. Patient tolerated well.
[2022-03-22 01:13] VITALS: BP_SYST 120
[2022-03-22] MEDS: NORMAL SALINE 5 ML DISP.SYRIN IVF SCH ×3 (05:01→22:04)
--- NOTE | 2022-03-22 05:31 | NUR ---
rn notes patient remainson room air,no sob noted, VSS. Last BS 172, will wait for breakfast before covering with insulin. Plan is to IV abx atthistime. Urine culture results pending.
[2022-03-22 07:10] LABS: ANION GAP 5 (5-15); C-REACTIVE PROTEIN QUANT < 0.2 mg/dL (0-0.5); CHLORIDE 105 mmol/L (98-107); GLUCOSE 183 mg/dL (70-99); PHOSPHORUS 4.4 mg/dL (2.7-4.5); UREA NITROGEN, BLOOD 28 mg/dL (8-21)
[2022-03-22 07:18] LABS: GFR AFRICAN AMERICAN 55 mL/min (>90)
--- NOTE | 2022-03-22 07:19 | NUR ---
Report received from retail shift leader RN for continuity of care. Patient stable condition.
[2022-03-22 08:00] VITALS: BP_SYST 139
[2022-03-22] MEDS ORDERED: POTASSIUM CHLORIDE 40 MEQ in NS 250 ML IV ONE ×2 (08:15→09:00)
[2022-03-22 08:36] LABS: ERYTHROCYTE SEDIMENTATION RATE 19 MM/HR (0-15)
[2022-03-22 08:40] LABS: BASOPHILS % (AUTO) 0.7 % (0.0-2.0); EOSINOPHILS # (AUTO) 0.2 K/uL (0.0-0.4); EOSINOPHILS % (AUTO) 4.9 % (0.0-4.0); HEMATOCRIT 24.5 % (36-54); HEMOGLOBIN 8.5 g/dL (14.0-18.0); LYMPHOCYTES # (AUTO) 0.9 K/uL (1.0-5.5); LYMPHOCYTES % (AUTO) 18.7 % (20.5-51.5); MEAN CORPUSCULAR HEMOGLOBIN 29 pg (27-31); MEAN CORPUSCULAR HGB CONC 35 % (32-36); MEAN CORPUSCULAR VOLUME 83 fL (79.0-98.0); MONOCYTES # (AUTO) 0.5 K/uL (0.0-1.0); MONOCYTES % (AUTO) 9.6 % (1.7-9.3); NEUTROPHILS # (AUTO) 3.4 K/uL (1.8-7.7); NEUTROPHILS % (AUTO) 66.1 % (40.0-70.0); PLATELET COUNT (AUTO) 199 K/uL (130-430); RED BLOOD CELL COUNT(AUTO) 2.96 MIL/uL (4.2-6.2); RED CELL DISTRIBUTION WIDTH 16.4 % (9.0-15.0)
[2022-03-22 08:55] LABS: WHITE BLOOD COUNT (AUTO) 5.1 K/uL (4.8-10.8)
[2022-03-22] MEDS: cloNIDine HCL 0.1 MG TABLET PO SCH ×2 (09:52→22:03)
[2022-03-22] MEDS: METOPROLOL SUCCINATE 25 MG TAB.SR.24H (TOPROL XL) PO SCH (09:52)
[2022-03-22] MEDS: amLODIPine BESYLATE 10 MG TABLET PO SCH (09:53)
[2022-03-22] MEDS: INSULIN REGULAR, HUMAN 100 UNITS/ML, 3 ML VIAL (humuLIN R) SUBCUT PRN ×3 (09:54→17:58)
[2022-03-22 11:34] VITALS: BP_SYST 137
[2022-03-22] MEDS: NACL 0.9% 1,000 ML IV SCH (12:05)
[2022-03-22] MEDS: AZITHROMYCIN 500 MG in NS 250 ML IV SCH (13:00)
[2022-03-22 15:32] VITALS: BP_SYST 132
--- NOTE | 2022-03-22 15:52 | NUR ---
Patient resting at the moment. No distress noted.
--- NOTE | 2022-03-22 18:43 | NUR ---
Report given to school cafeteria head cook RN for continuity of care. Patient stable.
--- NOTE | 2022-03-22 19:20 | NUR ---
Opening note Received patient awake, AOx4. Resting in bed, no distress and non labored breathing on room air. He watching t.v and talking with visitor at bedside. Presently denies pain. IVF and K-rider both infusing via IV to RAC and other to LAC. He has thibodeaux catheter drainage bag to gravity. Bed is locked in lowest position, side rails up 2x, call light w/in reach and turned on bed alarm. Updated board.
[2022-03-22 20:00] VITALS: BP_SYST 117
--- NOTE | 2022-03-22 22:45 | NUR ---
Wound care Provided dressing changes; wound care to wounds on lower extremities. Updated notes on MST assessment. Explained procedure to patient and he was in agreement and cooperative. Denies pain, tolerated.
[2022-03-23 00:30] VITALS: BP_SYST 120
--- NOTE | 2022-03-23 00:45 | NUR ---
Fingerstick BS Obtained result of 226 mg/dL and administered Regular insulin per sliding scale. IVF fluids empty, hung new bag of NS and infusing at 50ml/hr as ordered. Infusing well via RAC, no s/sx of infiltration.
[2022-03-23] MEDS: INSULIN REGULAR, HUMAN 100 UNITS/ML, 3 ML VIAL (humuLIN R) SUBCUT PRN ×3 (00:48→12:29)
[2022-03-23] MEDS: NACL 0.9% 1,000 ML IV SCH (00:51)
--- NOTE | 2022-03-23 04:40 | NUR ---
rounds Resting w/ eyes closed. Even non labored breathing. Safety precautions in place
[2022-03-23] MEDS: NORMAL SALINE 5 ML DISP.SYRIN IVF SCH ×2 (05:49→13:30)
--- NOTE | 2022-03-23 05:56 | NUR ---
Fingerstick BS Obtained result of 196 mg/dL and administered Regular insulin per sliding scale. Denies pain, has no further needs.
--- NOTE | 2022-03-23 07:30 | NUR ---
RECEIVED PT FROM ISA MOORE. PT IS AAOX4. NORMAL S1S2 NOTED. RESP E/U. ON R/A. ABDOMEN SOFT, NONTENDER, NONDISTENDED. BOWEL SOUNDS ACTIVE. DENIES N/V/D/C. DISTAL PULSES NORMAL. SKIN WARM, DRY. PT HAS LLE WOUND AND RLL 2 WOUNDS COVERED WITH CDI DRESSING. NO PERIPHERAL EDEMA. IV CATH TO RAC 22 G WITH NS RUNNING AT 50MLS/HOUR. LAC 20G S/L. FLUSHED, PATENT. BOTH SITES CDI, WNL. PT DENIES PAIN. CALL LIGHT WITHIN REACH. BED IN LOWEST POSITION.
[2022-03-23 07:34] LABS: ALANINE AMINOTRANSFERASE 17 U/L (12-78); ALBUMIN 2.3 g/dL (3.4-4.8); ANION GAP 8 (5-15); ASPARTATE AMINOTRANSFERASE 15 U/L (10-37); CALCIUM 7.8 mg/dL (8.4-11.0); CHLORIDE 105 mmol/L (98-107); CREATININE 1.61 mg/dL (0.55-1.30); GLUCOSE 215 mg/dL (70-99); PHOSPHORUS 4.2 mg/dL (2.7-4.5); UREA NITROGEN, BLOOD 27 mg/dL (8-21)
[2022-03-23 07:43] LABS: GFR AFRICAN AMERICAN 58 mL/min (>90)
[2022-03-23 07:44] LABS: C-REACTIVE PROTEIN QUANT < 0.2 mg/dL (0-0.5); TOTAL BILIRUBIN < 0.1 mg/dL (0.0-1.0)
[2022-03-23 08:00] VITALS: BP_SYST 155
[2022-03-23] MEDS: METOPROLOL SUCCINATE 25 MG TAB.SR.24H (TOPROL XL) PO SCH (08:38)
[2022-03-23] MEDS: amLODIPine BESYLATE 10 MG TABLET PO SCH (08:39)
[2022-03-23] MEDS: cloNIDine HCL 0.1 MG TABLET PO SCH (08:40)
[2022-03-23 08:43] LABS: EOSINOPHILS # (AUTO) 0.2 K/uL (0.0-0.4); EOSINOPHILS % (AUTO) 5.3 % (0.0-4.0); HEMATOCRIT 25.3 % (36-54); LYMPHOCYTES % (AUTO) 22.5 % (20.5-51.5); MEAN CORPUSCULAR HEMOGLOBIN 30 pg (27-31); MEAN CORPUSCULAR HGB CONC 35 % (32-36); MONOCYTES # (AUTO) 0.6 K/uL (0.0-1.0); MONOCYTES % (AUTO) 12.6 % (1.7-9.3); NEUTROPHILS # (AUTO) 2.6 K/uL (1.8-7.7); NEUTROPHILS % (AUTO) 58.6 % (40.0-70.0); PLATELET COUNT (AUTO) 207 K/uL (130-430); RED BLOOD CELL COUNT(AUTO) 2.98 MIL/uL (4.2-6.2); RED CELL DISTRIBUTION WIDTH 16.9 % (9.0-15.0); WHITE BLOOD COUNT (AUTO) 4.4 K/uL (4.8-10.8)
[2022-03-23 08:51] LABS: MEAN CORPUSCULAR VOLUME 85 fL (79.0-98.0)
--- NOTE | 2022-03-23 10:00 | NUR ---
SCHEDULED GIVEN AND TOLERATED WELL. PT REPOSITIONED FOR COMFORT. CALL LIGHT WITHIN REACH.
[2022-03-23 10:16] LABS: ERYTHROCYTE SEDIMENTATION RATE 13 MM/HR (0-15)
--- NOTE | 2022-03-23 11:10 | NUR ---
REPORTED TO DR. RAMOS PT'S K+= 3.3, PT HAS PARR WITH NO EVIDENT INDICATION. RECEIVED ORDER FOR D/C PARR CATH, LUIS 40MEQ IV X 1. ORDERS CARRIED OUT.
[2022-03-23] MEDS ORDERED: KCL 20 mEq in 100 mL (PREMIX) 100 ML IV ONE (11:15)
--- NOTE | 2022-03-23 11:30 | NUR ---
PARR CATH 16FR REMOVED INTACT, 10CC N/S REMOVED FROM BALLOON, ORDERED. PT EDUCATED TO DRINK EXTRA FLUIDS TO DECREASE CHANCE OF UTI. PT VERBALIZED UNDERSTANDING.
[2022-03-23] MEDS: POTASSIUM CHLORIDE 20 mEq in 100 mL (PREMIX) 100 ML x 2 doses IV SCH ×2 (11:52→13:29)
--- NOTE | 2022-03-23 11:53 | NUR ---
LUIS 20MEQ IV ONE OF TWO INITIATED AT THIS TIME FOR K+= 3.3.
[2022-03-23 12:25] VITALS: BP_SYST 147
[2022-03-23] MEDS ORDERED: METO-540 PO ×2 (12:41)
[2022-03-23] MEDS ORDERED: NOR10 PO (12:41)
[2022-03-23] MEDS ORDERED: DOXY100T2 PO (12:41)
[2022-03-23] MEDS ORDERED: GLIP10TA11 PO (12:41)
[2022-03-23] MEDS ORDERED: INSU100V7 SUBCUT (12:41)
[2022-03-23 13:06] LABS: MYCOPLASMA PNEUMONIAE IgM <770 U/mL (0-769)
[2022-03-23] MEDS: AZITHROMYCIN 500 MG in NS 250 ML IV SCH (13:22)
--- NOTE | 2022-03-23 13:45 | NUR ---
SPOKE TO BEVERLY FRAMER REGARDING PT'S HOME HEALTH ORDER. SHE STATED PT IS FINE TO DISCHARGE TODAY, HOME HEALTH WILL BE ARRANGED. GIVE PT WOUND CARE TEACHING AND EXTRA SUPPLIES X 3 DAYS. PT INFORMED THAT ONCE HIS KCL IV IN COMPLETED HE MAY GO HOME. WOUND CARE INSTRUCTIONS GIVEN, PT VERBALIZED UNDERSTANDING. PT GIVEN EXTRA SUPPLIES FOR WOUND CARE.
--- NOTE | 2022-03-23 14:00 | NUR ---
CM: late entry: received call from ISA Lin asking for HH arrangement, stated the pt is aao x4 need wound care. The pt lives with family and he is able to do self dressing change. Said patient has st 2 bibiana LE wounds. The patient is ambulatory with some weakness. I advised her to concur with her charge nurse for safe discharge. If ok discharge, RN to provide wound care instructions and provide 2-3 of dressing supplies.
[2022-03-23 14:11] VITALS: BP_SYST 145
--- NOTE | 2022-03-23 14:51 | NUR ---
FLU VACCINE GIVEN I.M. TO RIGHT DELTOID. COVERED WITH BANDAGE.
--- NOTE | 2022-03-23 16:30 | NUR ---
WOUND CARE PREFORMED ON THE FOLLOWING WOUNDS: LEFT KNEE 1.5CM X 1.5CM OPEN WOUND WITH SCAB AND GRANULATION TISSUE; LATERAL RIGHT LOWER EXTREMITY STAGE 3 7CM X 9CM WOUND; RIGHT KNEE 2CM X 2 CM EXCORIATION; ANTERIOR RIGHT LOWER EXTREMITY 7CM X 6 CM STAGE 2 WOUND; ALL SITE CLEANSED WITH NORMAL SALINE, PATTED DRY, ABDAPITIC APPLIED AND COVERED WITH OPTIFOAM DRESSING. PT TOLERATE PROCEDURE WELL AND VERBALIZED UNDERSTANDING OF WOUND CARE ORDERS. PT EDUCATED TO PREFORM WOUND DAILY AND NEEDED WHEN SOILED.
--- NOTE | 2022-03-23 17:46 | NUR ---
Home Health: faxed the referral package to [facility], [place], fax # [phone], tel [phone].
--- NOTE | 2022-03-24 09:49 | NUR ---
Discharge Planning: DCP faxed pt referral to [facility] F#[phone], Jeana Rodriguez [phone] PT, [facility] [phone] IV meds DCP to follow up.
--- NOTE | 2022-03-25 09:10 | NUR ---
cm: Verified and revised wound care order per dr. Mccarthy and send the order to [facility] .
[2022-03-31 10:03] LABS: COCCIDIOIDES AB COMPLEMENT FIX 0.2 (NEGATIVE)
== END 2022-03-23 22:09 | disposition home health service (06) | DRG 720 ==
LOC: SED 18:53 → STU 20:40 → SIC 03-20 05:16 → STU 03-21 20:00 → SMU 03-23 09:19
PROVIDERS: ADMIT Preventive Medicine Preventive Medicine/Occupational Environmental Medicine; ATTEND Preventive Medicine Preventive Medicine/Occupational Environmental Medicine
DX: A41.9 Sepsis, unspecified organism (principal); N17.0 Acute kidney failure with tubular necrosis; E11.00 Type 2 diabetes mellitus with hyperosmolarity without nonketotic hyperglycemic-hyperosmolar coma (NKHHC); G93.41 Metabolic encephalopathy; E87.20 Acidosis, unspecified; E43 Unspecified severe protein-calorie malnutrition; J18.9 Pneumonia, unspecified organism; E87.1 Hypo-osmolality and hyponatremia; I13.0 Hypertensive heart and chronic kidney disease with heart failure and stage 1 through stage 4 chronic kidney disease, or unspecified chronic kidney disease; E88.09 Other disorders of plasma-protein metabolism, not elsewhere classified; I50.9 Heart failure, unspecified; E11.22 Type 2 diabetes mellitus with diabetic chronic kidney disease; Z20.822 Contact with and (suspected) exposure to COVID-19; D64.9 Anemia, unspecified; E87.6 Hypokalemia; E11.65 Type 2 diabetes mellitus with hyperglycemia; E83.52 Hypercalcemia; N18.9 Chronic kidney disease, unspecified; Z79.84 Long term (current) use of oral hypoglycemic drugs; Z79.899 Other long term (current) drug therapy; Z87.01 Personal history of pneumonia (recurrent); Z68.1 Body mass index [BMI] 19.9 or less, adult
CPT/HCPCS: 36415; 70450-TC; 71045; 76376; 76770; 80048; 80053; 80307; 81000; 82009; 82140; 82550; 82800-TC; 82803-TC; 82962; 83605; 83735; 83880; 84100; 84484; 85025; 85610-TC; 85651-TC; 85730-TC; 86140; 86480; 86635; 86738; 87040; 87070-TC; 87081; 87086; 87205-TC; 87449; 93005; 96361; 96365; 96375; 99285; G0378; G0480; G0481; G0482; J0360; J0456; J0696; J1815; J1956; J2405; J2543; J3480; J7030; J7050; J7060

== ENCOUNTER 2022-04-04 20:33 | Inpatient (IN) | payer MEDICAID ==
[~2022-04-04] VITALS: Ht 172.7 cm; Wt 68.0 kg
[~2022-04-04 20:33] MED LIST changes: -CLIN-142 PO; +DOXY100T2 PO; +INSU100V7 SUBCUT; -LISI-209 PO; -METF-518 PO; +METO-540 PO; +NOR10 PO
[2022-04-04 20:39] VITALS: BP_SYST 164
--- NOTE | 2022-04-04 20:44 | NUR ---
PT HEREACCOMPANIED BY HIS FAMUILY MEMBER C/O BLURRY VISION TODAY. PER FAMILY HE WAS HERE 2 WKS AGO FOR SAME REASON. PER FAMILY HE WENT TO HIS OPTHALMOLOGIST NOT SUREA BOUT RESULT AND PER FAMILY HE FOLLWED UP TODAY TO HIS PCP AND NEVER BEEN SEEN. PT SPEAKING IN FULL SENTENCES, DENIES DIZZINESS, DENIES N/V. MOVING ALL EXTREMITIES. PMH:HTN,DM PT AAOX4, NO SOB NOTED AND NAD. ASISITED PT TO RM4. REPORT GIVEN TO ALVINA MOSS
--- NOTE | 2022-04-04 20:55 | NUR ---
ER at bedside examining patient.
--- NOTE | 2022-04-04 21:00 | NUR ---
CODE STROKE CALLED ON PATIENT AFTER DR TRAORE ASSESSED PATIENT. NEUROLOGIST DR OSPINA ASSESSED PATIENT AND PATIENT WAS NEGATIVE FOR STROKE PARAMETERS. DR PAIGE ORDERED INSULIN INFUSION , AND ORDERED THAT INSULIN INFUSION BE STOPPED IF BLOOD GLUCOSE WAS 250 OR BELOW 250 AND BLOOD SUGAR CHECKS FROM THEN BE DONE EVERY FOUR HOURS INSULIN INFUSION STOPPED AT 0700 WITH RESULT OF 240mmHH, BLOOD SUGAR CHECKS WILL NOW BE EVERY FOUR HOURS PER MD ORDER. ENDORSED REPORT
--- NOTE | 2022-04-04 21:01 | NUR ---
Code stroke activated
[2022-04-04] MEDS ORDERED: iohexoL 350 mgI/mL, 100 ML INFUS..BTL IV ONE (21:14)
[2022-04-04] MEDS ORDERED: NACL 0.9% 1,000 ML IV ONE ×3 (21:15→23:00)
[2022-04-04] MEDS ORDERED: ONDANSETRON HCL 4 MG/2 ML VIAL IVP ONE (21:15)
[2022-04-04] MEDS ORDERED: MORPHINE 4 MG INJ. 4 MG/ML VIAL IVP ONE (22:15)
[2022-04-04 22:19] LABS: BASOPHILS % (AUTO) 0.6 % (0.0-2.0); EOSINOPHILS # (AUTO) 0.2 K/uL (0.0-0.4); EOSINOPHILS % (AUTO) 2.4 % (0.0-4.0); HEMATOCRIT 27.5 % (36-54); HEMOGLOBIN 9.4 g/dL (14.0-18.0); LYMPHOCYTES # (AUTO) 0.9 K/uL (1.0-5.5); LYMPHOCYTES % (AUTO) 12.3 % (20.5-51.5); MEAN CORPUSCULAR HEMOGLOBIN 29 pg (27-31); MEAN CORPUSCULAR HGB CONC 34 % (32-36); MEAN CORPUSCULAR VOLUME 84 fL (79.0-98.0); MONOCYTES # (AUTO) 0.7 K/uL (0.0-1.0); MONOCYTES % (AUTO) 9.5 % (1.7-9.3); NEUTROPHILS # (AUTO) 5.7 K/uL (1.8-7.7); NEUTROPHILS % (AUTO) 75.2 % (40.0-70.0); PLATELET COUNT (AUTO) 204 K/uL (130-430); RED BLOOD CELL COUNT(AUTO) 3.27 MIL/uL (4.2-6.2); RED CELL DISTRIBUTION WIDTH 16.5 % (9.0-15.0); WHITE BLOOD COUNT (AUTO) 7.6 K/uL (4.8-10.8)
--- NOTE | 2022-04-04 22:35 | NUR ---
COVID/FLU SWAB TAKEN AND DROPPED OFF TO LAB
[2022-04-04] MEDS ORDERED: ASPIRIN 81 MG TABLET(ECOTRIN) PO ONE (23:00)
[2022-04-04] MEDS ORDERED: INSULIN REGULAR, HUMAN 100 UNITS/ML, 3 ML VIAL (humuLIN R) SUBCUT PRN (23:00)
[2022-04-04] MEDS ORDERED: DEXTROSE 50% JECT 50 ML DISP.SYRIN IVP PRN (23:00)
--- NOTE | 2022-04-04 23:06 | NUR ---
Admit bed requested Patient will be admitted to care of . Admitted to TELE unit. Diagnosis UNCONTROLLED DM W/ BLURRED VISION Inpatient (Yes or No) YES Observation (Yes or No) NO Orientation concerns or request close to nursing station (Yes or No) NO Covid Status PENDING On vent or bipap NO Isolation requirements NO Needs a sitter NO From Home (Yes or if No enter name of facility) YES Requires Dialysis (Yes or No) NO Med Rec Completed (Yes of No) PENDING
--- NOTE | 2022-04-04 23:06 | NUR ---
BLOOD SUGAR CHECK DONE , RESULT SHOWS HIGH , DR MARTINEZ AND DR TRAORE MADE AWARE , MD ORDERED CONTINUE WITH REHIDRATION OF PATIENT
[2022-04-04] MEDS ORDERED: INSULIN REGULAR, HUMAN 100 UNITS in NS 99 ML IV PRN ×2 (23:30)
[2022-04-04] MEDS ORDERED: ACETAMINOPHEN 325 MG TABLET PO PRN (23:30)
[2022-04-04] MEDS ORDERED: hydrALAZINE HCL 20 MG/ML VIAL IVP PRN (23:30)
--- NOTE | 2022-04-04 23:41 | NUR ---
Admit bed requested Patient will be admitted to care of . Admitted to ICU unit. Diagnosis UNCONTROLLED DM W/ BLURRED VISION Inpatient (Yes or No) YES Observation (Yes or No) NO Orientation concerns or request close to nursing station (Yes or No) NO Covid Status PENDING On vent or bipap NO Isolation requirements NO Needs a sitter NO
[2022-04-04 23:52] LABS: INR 0.9 (0.80-1.20); PROTHROMBIN TIME 9.6 SECS (9.5-12.5)
[2022-04-04] MEDS: NACL 0.9% 1,000 ML IV SCH (23:58)
[2022-04-05] VITALS (12 sets, daily range): BP systolic 135–168
[2022-04-05 00:25] LABS: CHLORIDE 92 mmol/L (98-107)
[2022-04-05 00:27] LABS: CALCIUM 8.3 mg/dL (8.4-11.0); CREATININE 1.71 mg/dL (0.55-1.30); GFR AFRICAN AMERICAN 55 mL/min (>90); GLUCOSE 714 mg/dL (70-99); UREA NITROGEN, BLOOD 29 mg/dL (8-21)
[2022-04-05 00:28] LABS: ALANINE AMINOTRANSFERASE 16 U/L (12-78); ALBUMIN 2.7 g/dL (3.4-4.8); ASPARTATE AMINOTRANSFERASE 9 U/L (10-37); TOTAL BILIRUBIN 0.2 mg/dL (0.0-1.0)
[2022-04-05 00:37] LABS: ACETONE, SERUM NEGATIVE (NEGATIVE)
--- NOTE | 2022-04-05 02:15 | NUR ---
BGL 500
--- NOTE | 2022-04-05 03:05 | NUR ---
BGL 420
[2022-04-05] MEDS: NACL 0.9% 1,000 ML IV SCH ×4 (04:00→21:00)
--- NOTE | 2022-04-05 04:04 | NUR ---
ACCU-CHECK 402
[2022-04-05 04:49] LABS: BILIRUBIN,URINE NEGATIVE (NEGATIVE); BLOOD, URINE 1+ (NEGATIVE); CLARITY/URINE CLEAR (CLEAR); COLOR,URINE YELLOW (YELLOW); GLUCOSE,URINE 3+ (NEGATIVE); KETONES,URINE NEGATIVE (NEGATIVE); LEUKOCYTE ESTERASE ,URINE NEGATIVE (NEGATIVE); NITRITE, URINE NEGATIVE (NEGATIVE); PH,URINE 6.5 (5.0-8.0); PROTEIN URINE 2+ (NEGATIVE); UROBILINOGEN,URINE 0.2 (0.2-1.0)
[2022-04-05 05:06] LABS: BARBITURATE, URINE NEGATIVE (NEG <=200); BENZODIAZEPINE, URINE NEGATIVE (NEG <=150); CANNABINOID, URINE NEGATIVE (NEG <=50); COCAINE, URINE NEGATIVE (NEG <=150); METHAMPHETAMINES SCREEN,URINE NEGATIVE (NEG <=500); OPIATE, URINE POSITIVE (NEG <=100); PHENCYCLIDINE SCREEN,URINE NEGATIVE (NEG <=25); UR TRICYCLIC ANTIDEPRESSANTS NEGATIVE (NEG <=300); URINE AMPHETAMINE NEGATIVE (NEG <=500); URINE METHADONE NEGATIVE (NEG <=200); URINE OXYCODONE SCREEN NEGATIVE (NEG <=100); URINE PROPOXYPHENE SCREEN NEGATIVE (NEG <=300)
--- NOTE | 2022-04-05 05:15 | NUR ---
ACCU-CHECK 352
--- NOTE | 2022-04-05 07:05 | NUR ---
Clemencia ziegler in [facility] - 04/05/22 at 0741 by [id number] PATIENT OUT OF UNIT TO CT
--- NOTE | 2022-04-05 07:25 | NUR ---
RECEIVED PT FROM PM NURSE. PT AWAKE AND ALERT. VSS
--- NOTE | 2022-04-05 07:56 | NUR ---
A TOTAL OF 5400ML NS TRANSFUSED AND A TOTAL OF 1000ML OF URINE OUT PUT, VIA URINAL
--- NOTE | 2022-04-05 08:01 | NUR ---
Received patient from ICU via bed. Received report at the bedside by Melisa MOSS. Patient's a/o x4, verbally responsive, speaks Polish mostly but able to understand and speak Kittitian a little. 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 Lungs sound clear bilaterally. Respiration is normal and unlabored, no respiratory distress noted. IVF, NS @ 200cc/hr running through IV access on the RFA, patent w/ no s/s of infiltration. Patient denies any pain or discomfort, no s/s of hyper/hypoglycemia noted.
[2022-04-05 08:26] LABS: BASOPHILS # (AUTO) 0.1 K/uL (0.0-0.2); BASOPHILS % (AUTO) 0.6 % (0.0-2.0); EOSINOPHILS # (AUTO) 0.1 K/uL (0.0-0.4); EOSINOPHILS % (AUTO) 0.8 % (0.0-4.0); HEMATOCRIT 26.7 % (36-54); HEMOGLOBIN 9.5 g/dL (14.0-18.0); LYMPHOCYTES # (AUTO) 0.9 K/uL (1.0-5.5); LYMPHOCYTES % (AUTO) 8.7 % (20.5-51.5); MEAN CORPUSCULAR HEMOGLOBIN 29 pg (27-31); MEAN CORPUSCULAR HGB CONC 36 % (32-36); MEAN CORPUSCULAR VOLUME 82 fL (79.0-98.0); MONOCYTES # (AUTO) 0.5 K/uL (0.0-1.0); MONOCYTES % (AUTO) 4.9 % (1.7-9.3); NEUTROPHILS # (AUTO) 8.9 K/uL (1.8-7.7); PLATELET COUNT (AUTO) 245 K/uL (130-430); RED BLOOD CELL COUNT(AUTO) 3.27 MIL/uL (4.2-6.2); RED CELL DISTRIBUTION WIDTH 16.2 % (9.0-15.0); WHITE BLOOD COUNT (AUTO) 10.5 K/uL (4.8-10.8)
--- NOTE | 2022-04-05 09:54 | NUR ---
Patient will be admitted to [facility]. Admitted to ICU unit. Will go to room 3. Belongings list completed. Complete and up to date summary report printed. SBAR report to be given at bedside with opportunity for questions.
--- NOTE | 2022-04-05 10:52 | NUR ---
Nephro consult called answering service, spoke to Geetha for the consult. Dr Garcia cinder block mason today.
--- NOTE | 2022-04-05 10:57 | NUR ---
ENDO CONSULT PAGED AND LEFT MESSAGE TO DR FLYNN SAYED.
[2022-04-05 12:20] LABS: BASOPHILS # (AUTO) 0.1 K/uL (0.0-0.2); BASOPHILS % (AUTO) 0.4 % (0.0-2.0); EOSINOPHILS % (AUTO) 0.2 % (0.0-4.0); HEMATOCRIT 26.9 % (36-54); HEMOGLOBIN 9.3 g/dL (14.0-18.0); LYMPHOCYTES # (AUTO) 0.9 K/uL (1.0-5.5); LYMPHOCYTES % (AUTO) 6.9 % (20.5-51.5); MEAN CORPUSCULAR HEMOGLOBIN 29 pg (27-31); MEAN CORPUSCULAR HGB CONC 35 % (32-36); MEAN CORPUSCULAR VOLUME 82 fL (79.0-98.0); MONOCYTES # (AUTO) 0.5 K/uL (0.0-1.0); MONOCYTES % (AUTO) 3.8 % (1.7-9.3); NEUTROPHILS # (AUTO) 11.7 K/uL (1.8-7.7); NEUTROPHILS % (AUTO) 88.7 % (40.0-70.0); PLATELET COUNT (AUTO) 231 K/uL (130-430); RED BLOOD CELL COUNT(AUTO) 3.26 MIL/uL (4.2-6.2); RED CELL DISTRIBUTION WIDTH 16.3 % (9.0-15.0)
[2022-04-05] MEDS: ASPIRIN 81 MG TABLET(ECOTRIN) PO SCH (12:22)
[2022-04-05] MEDS: amLODIPine BESYLATE 10 MG TABLET PO SCH (12:23)
[2022-04-05] MEDS: METOPROLOL SUCCINATE 25 MG TAB.SR.24H (TOPROL XL) PO SCH (12:24)
[2022-04-05] MEDS: DOXYCYCLINE HYCLATE 100 MG CAPSULE PO SCH (12:24)
[2022-04-05 12:27] LABS: WHITE BLOOD COUNT (AUTO) 13.2 K/uL (4.8-10.8)
[2022-04-05] MEDS ORDERED: INSULIN GLARGINE 100 UNITS/ML, 10 ML VIAL SUBCUT ONE (12:30)
[2022-04-05 12:43] LABS: CALCIUM 7.9 mg/dL (8.4-11.0); CREATININE 1.44 mg/dL (0.55-1.30)
[2022-04-05 12:49] LABS: ALBUMIN 2.7 g/dL (3.4-4.8); PHOSPHORUS 3.7 mg/dL (2.7-4.5); TOTAL BILIRUBIN 0.3 mg/dL (0.0-1.0)
[2022-04-05 15:09] LABS: ANION GAP 5 (5-15)
--- NOTE | 2022-04-05 15:47 | NUR ---
Dietitian Recommendations * [facility], 2 gm Na love VICTOR, MS, RD Please refer to Nutrition Assessment for details. Addendum: 04/05/22 at [address] Amended: Links added.
--- NOTE | 2022-04-05 20:18 | NUR ---
RECEIVED PATIENT IN BED, A/O X4 , NO DISTRESS NOTED, O2 SAT 95% ON ROOM AIR, SINUS RHYTHM WITH RATE OF 99 ON THE MONITOR, IVF WITH NS AT 200 ML/HR INFUSING AT RFA , SITE IS CLEAN AND DRY. MULTIPLE WOUND WITH MEPILEX COVERED AT RIGHT LEG. MULTIPLE DISCOLORATION AT BOTH LEGS. NO C/O PAIN AT THIS TIME.
--- NOTE | 2022-04-05 22:00 | NUR ---
PATIENT HAS BLURRED VISION AT RIGHT EYE AND COMPLETE BLIND AT LEFT EYE. ASSISTED PATIENT TO USE URINAL WITH 950 ML YELLOW URINE. CALL LIGHT WITHIN REACH, NEEDS MET AT THIS TIME.
[2022-04-06] VITALS: BP_SYST 158
[2022-04-06] MEDS: DOXYCYCLINE HYCLATE 100 MG CAPSULE PO SCH ×3 (00:20→21:12)
[2022-04-06] MEDS: NACL 0.9% 1,000 ML IV SCH ×4 (00:22→16:25)
[2022-04-06 04:40] VITALS: BP_SYST 138
[2022-04-06 08:00] VITALS: BP_SYST 156
--- NOTE | 2022-04-06 08:17 | NUR ---
Blood sugar @ 0700 was 125. Patient's stable no c/o pain or discomfort, no s/s of hypoglycemia noted.
[2022-04-06] MEDS: METOPROLOL SUCCINATE 25 MG TAB.SR.24H (TOPROL XL) PO SCH (08:34)
[2022-04-06] MEDS: ASPIRIN 81 MG TABLET(ECOTRIN) PO SCH (08:34)
[2022-04-06] MEDS: INSULIN GLARGINE 100 UNITS/ML, 10 ML VIAL SUBCUT SCH (08:35)
[2022-04-06] MEDS: amLODIPine BESYLATE 10 MG TABLET PO SCH (08:36)
--- NOTE | 2022-04-06 09:08 | NUR ---
Shift Summary: patient is AAOX3. vitals are stable during morning assessment. patient updated on plan of care for the day. patient informed of 24 hour urine collection that needs to be collected. urine collection started at 0845. patient states he understands and aware. assisted patient to bathroom. patient unstable, high risk for fall, and informed not to get out of bed and ambulate without the assistance from a staff member. patient states he understands. will continue to monitor patient. call light within reach, bed set to low, locked and alarm on. Addendum: 04/06/22 at 1142 by Nancy Alex RN RN patients K+ is 2.9 per Eunice Macias, rags laborerJeana aldrich. Addendum: 04/06/22 at 1832 by Nancy Alex RN RN patient AAOX4. vitals are stable. family bedside. patient and family updated on plan of care for patient regarding 24hr urine collection. patient and family state they have no questions or concerns at this time. will endorse to oncoming nurse. call light within reach, bed set to low, locked, and alarm on.
[2022-04-06 11:21] LABS: BASOPHILS # (AUTO) 0.1 K/uL (0.0-0.2); BASOPHILS % (AUTO) 0.7 % (0.0-2.0); EOSINOPHILS # (AUTO) 0.3 K/uL (0.0-0.4); EOSINOPHILS % (AUTO) 3.4 % (0.0-4.0); HEMATOCRIT 26.7 % (36-54); HEMOGLOBIN 9.3 g/dL (14.0-18.0); LYMPHOCYTES # (AUTO) 1.1 K/uL (1.0-5.5); LYMPHOCYTES % (AUTO) 13.7 % (20.5-51.5); MEAN CORPUSCULAR HEMOGLOBIN 29 pg (27-31); MEAN CORPUSCULAR HGB CONC 35 % (32-36); MEAN CORPUSCULAR VOLUME 83 fL (79.0-98.0); MONOCYTES # (AUTO) 0.5 K/uL (0.0-1.0); MONOCYTES % (AUTO) 6.3 % (1.7-9.3); NEUTROPHILS # (AUTO) 5.9 K/uL (1.8-7.7); NEUTROPHILS % (AUTO) 75.9 % (40.0-70.0); PLATELET COUNT (AUTO) 211 K/uL (130-430); RED BLOOD CELL COUNT(AUTO) 3.23 MIL/uL (4.2-6.2); RED CELL DISTRIBUTION WIDTH 16.5 % (9.0-15.0)
[2022-04-06 11:26] LABS: WHITE BLOOD COUNT (AUTO) 7.8 K/uL (4.8-10.8)
[2022-04-06 11:38] LABS: ALBUMIN 2.4 g/dL (3.4-4.8); CREATININE 1.34 mg/dL (0.55-1.30); PHOSPHORUS 3.8 mg/dL (2.7-4.5); TOTAL BILIRUBIN 0.2 mg/dL (0.0-1.0)
[2022-04-06 12:00] VITALS: BP_SYST 145
[2022-04-06] MEDS ORDERED: POTASSIUM CHLORIDE 20 MEQ TAB.PRT.SR PO ONE (12:00)
[2022-04-06 16:00] VITALS: BP_SYST 135
[2022-04-06 20:25] VITALS: BP_SYST 128
[2022-04-06] MEDS: LOSARTAN POTASSIUM 25 MG TABLET PO SCH (21:12)
[2022-04-06] MEDS: POTASSIUM CHLORIDE 20 MEQ TAB.PRT.SR PO SCH (21:13)
[2022-04-06] MEDS: INSULIN LISPRO SLIDING SCALE 100 UNITS/ML, 3 ML VIAL (humaLOG) SUBCUT PRN (21:15)
[2022-04-07] VITALS: BP_SYST 135
[2022-04-07 04:00] VITALS: BP_SYST 128
[2022-04-07] MEDS: NACL 0.9% 1,000 ML IV SCH ×2 (06:19→12:58)
--- NOTE | 2022-04-07 07:05 | NUR ---
Patient stable, got his medications, blood sugar within range, he denies any pain at this time but he did not make any urine this shift. To endorse to oncoming shift for continuity of care.
--- NOTE | 2022-04-07 07:14 | NUR ---
receive the patient from the metal bonding crib attendant rn in a stable condition with admitting diagnosis diabetic ketoacidosis .ox4 no complain pf pain at this time . no sign and symptoms of respiratory distress . will continue to monitor .
[2022-04-07 07:59] LABS: ALBUMIN 2.5 g/dL (3.4-4.8); CALCIUM 7.7 mg/dL (8.4-11.0); CREATININE 1.31 mg/dL (0.55-1.30); PHOSPHORUS 4.1 mg/dL (2.7-4.5); THYROID STIMULATING HORMONE 3.04 uIu/mL (0.34-4.82); TOTAL BILIRUBIN 0.2 mg/dL (0.0-1.0)
[2022-04-07 08:00] VITALS: BP_SYST 161
[2022-04-07 08:35] LABS: BASOPHILS # (AUTO) 0.1 K/uL (0.0-0.2); EOSINOPHILS # (AUTO) 0.2 K/uL (0.0-0.4); HEMOGLOBIN 8.8 g/dL (14.0-18.0); LYMPHOCYTES # (AUTO) 0.9 K/uL (1.0-5.5); LYMPHOCYTES % (AUTO) 14.6 % (20.5-51.5); MEAN CORPUSCULAR HEMOGLOBIN 29 pg (27-31); MEAN CORPUSCULAR HGB CONC 35 % (32-36); MEAN CORPUSCULAR VOLUME 83 fL (79.0-98.0); MONOCYTES # (AUTO) 0.5 K/uL (0.0-1.0); NEUTROPHILS # (AUTO) 4.2 K/uL (1.8-7.7); NEUTROPHILS % (AUTO) 71.4 % (40.0-70.0); PLATELET COUNT (AUTO) 208 K/uL (130-430); RED BLOOD CELL COUNT(AUTO) 3.02 MIL/uL (4.2-6.2); RED CELL DISTRIBUTION WIDTH 16.2 % (9.0-15.0); WHITE BLOOD COUNT (AUTO) 5.9 K/uL (4.8-10.8)
--- NOTE | 2022-04-07 08:45 | NUR ---
submitted 24 hour urine collection to the lab which started yesterday at the same time .
[2022-04-07] MEDS: DOXYCYCLINE HYCLATE 100 MG CAPSULE PO SCH ×2 (10:43→21:22)
[2022-04-07] MEDS: METOPROLOL SUCCINATE 25 MG TAB.SR.24H (TOPROL XL) PO SCH (10:43)
[2022-04-07] MEDS: ASPIRIN 81 MG TABLET(ECOTRIN) PO SCH (10:44)
[2022-04-07] MEDS: POTASSIUM CHLORIDE 20 MEQ TAB.PRT.SR PO SCH ×2 (10:44→21:22)
[2022-04-07] MEDS: amLODIPine BESYLATE 10 MG TABLET PO SCH (10:44)
[2022-04-07] MEDS: INSULIN GLARGINE 100 UNITS/ML, 10 ML VIAL SUBCUT SCH (10:45)
[2022-04-07] MEDS: INSULIN LISPRO SLIDING SCALE 100 UNITS/ML, 3 ML VIAL (humaLOG) SUBCUT PRN (13:02)
--- NOTE | 2022-04-07 14:14 | NUR ---
WOUND EVALUATION: Wound Consult received from Dr. Stewart. Thank you, Dr. Stewart, for the consult. Patient received in a Alejandra Bed, awake, alert, and oriented. Patient is able to turn independently. Wilfrid Score is a 19. Past Medical History: Diabetes Mellitus, Hypertension, and Nephrotic Syndrome. Patient admitted for sudden loss of vision. Recent Labs: WBC 5.9, RBC 3.0, hemoglobin 8.8, hematocrit 25.0, potassium 3.2, BUN 22, creatinine 1.31, GFR 61, calcium 7.7, serum total protein 5.9, albumin 2.5. Microbiology: MRSA screen results negative. Intrinsic factors that delay wound healing: Diabetes mellitus, Hyperglycemia. Extrinsic factors that delay wound healing: Decreased mobility. Wound Assessment: 1. Right Anterior Knee: Diabetic Ulcer, present on admission. Wound bed has 100% black eschar. No odor, no drainage. Periwound intact. Dry, stable. Wound measures 1.5 cm x 1.2 cm x 0.4 cm. Recommend: [place] wound with Betadine daily. Assess site every shift. 2. Right Anterior Lower Extremity, Inferior and Lateral to Site 1: Diabetic Ulcer, present on admission. Wound bed has 90% yellow tissue, 10% black eschar. No odor, scant yellow drainage. Periwound intact. Black scabs present present superior and medial to site. Wound measures 1.2 cm x 0.9 cm. Recommend: Cleanse open wound with normal Saline. Apply Hydrogel to wound bed. Cover wound with Therahoney Sheet. [place] black scabs with Betadine. Cover with non-adhesive foam dressing. Wrap with sonu wrap. Perform wound care daily, and as needed for dressing soiling or dislodgment. 3. Right Mid Medial Calf: Diabetic Ulcer, present on admission. Wound bed has 75% black tissue, 20% yellow eschar, 5% red tissue. No odor, scant yellow drainage. Periwound intact. Wound measures 4.5 cm x 3.8 cm. Recommend: Cleanse wound with normal Saline. Apply Hydrogel to wound bed. Cover wound with Therahoney Sheet. Cover with non-adhesive foam dressing. Wrap with sonu wrap. Perform wound care daily, and as needed for dressing soiling or dislodgment. 4. Right Lateral Lower Extremity, Inferior to Knee: Ulcer, present on admission. Wound bed has 85% black eschar, 10% yellow tissue, 5% red tissue. No odor, scant yellow/red drainage. Periwound intact. Two black scabs present superior to wound. Wound measures 5.2 cm x 6.6 cm. Recommend: Cleanse open wound with normal Saline. Apply Hydrogel to wound bed. Cover wound with Therahoney Sheet. [place] black scabs with Betadine. Cover with non-adhesive foam dressing. Wrap with sonu wrap. Perform wound care daily, and as needed for dressing soiling or dislodgment. 5. Right Posterior Heel: Chronic unstageable pressure ulcer, present on admission. Wound bed has 100% black eschar. No odor, no drainage. Periwound intact. Brown scaly skin present surrounding wound bed. Wound measures 0.2 cm x 0.5 cm. Recommend: [place] wound with Betadine daily. Allow Betadine to air dry. Cover site with foam dressing. Elevate, offload and float heels with 1 pillow lengthwise under each extremity at all times. Do not allow heels to touch bed or other surfaces. Assess site every shift with peel and peak. Also recommend: Encourage and assist patient as needed with repositioning every 2 hours with pillow support and off-load pressure areas with pillows for pressure re-distribution. Offload, elevate and float bilateral heels with pillows. Perform skin care and monitor skin integrity Q shift.
[2022-04-07] MEDS ORDERED: CARVEDILOL 12.5 MG TABLET (COREG) PO ONE (16:45)
--- NOTE | 2022-04-07 18:18 | NUR ---
will endosre to shift commander rn for continuity of care
[2022-04-07] MEDS: HONEY WOUND DRESSING 1 EACH TP SCH (19:00)
[2022-04-07 20:00] VITALS: BP_SYST 144
[2022-04-07 20:39] LABS: TPROTEIN U,24HR 4324.8 mg/24HR (0-130)
[2022-04-07] MEDS: LOSARTAN POTASSIUM 25 MG TABLET PO SCH (21:22)
[2022-04-08] VITALS: BP_SYST 141
--- NOTE | 2022-04-08 05:22 | NUR ---
PATIENT CURRENTLY IN BED RESTING. PATIENT C/O NO PAIN DURING THIS SHIFT, VSS, PIV TO L FA 22G. PATIENT POSS DISCHARGE TODAY. SPOKE WITH DR. FLYNN-SAYED AFTER SHIFT CHANGE AND HE STATED PATIENT WAS OK TO DISCHARGE IF OK WITH DR. CATALAN. PATIENT AMB WITH ASSIST, ACCU CHECK AT 2100- BS 103.
[2022-04-08 07:13] LABS: BASOPHILS # (AUTO) 0.1 K/uL (0.0-0.2); BASOPHILS % (AUTO) 1.2 % (0.0-2.0); EOSINOPHILS # (AUTO) 0.4 K/uL (0.0-0.4); EOSINOPHILS % (AUTO) 5.7 % (0.0-4.0); HEMATOCRIT 27.1 % (36-54); HEMOGLOBIN 9.5 g/dL (14.0-18.0); LYMPHOCYTES # (AUTO) 0.7 K/uL (1.0-5.5); MEAN CORPUSCULAR HEMOGLOBIN 29 pg (27-31); MEAN CORPUSCULAR HGB CONC 35 % (32-36); MEAN CORPUSCULAR VOLUME 83 fL (79.0-98.0); MONOCYTES # (AUTO) 0.7 K/uL (0.0-1.0); MONOCYTES % (AUTO) 10.7 % (1.7-9.3); NEUTROPHILS # (AUTO) 4.9 K/uL (1.8-7.7); NEUTROPHILS % (AUTO) 72.4 % (40.0-70.0); PLATELET COUNT (AUTO) 216 K/uL (130-430); RED BLOOD CELL COUNT(AUTO) 3.26 MIL/uL (4.2-6.2); RED CELL DISTRIBUTION WIDTH 16.1 % (9.0-15.0); WHITE BLOOD COUNT (AUTO) 6.7 K/uL (4.8-10.8)
[2022-04-08 07:30] LABS: CALCIUM 8.2 mg/dL (8.4-11.0); CREATININE 1.3 mg/dL (0.55-1.30)
--- NOTE | 2022-04-08 07:30 | NUR ---
OPENING NOTES: PATIENT IS RESTING IN BED QUIETLY. AAOX4 ABLE TO MAKE NEEDS KNOWN. DENIES DISTRESS OR PAIN AT THIS TIME. EXPLAINED POC AND PATIENT VERBALIZED UNDERSTANDING. BED IN LOW AND LOCK POSITION. CALL LIGHT AND BEDSIDE TABLE WITHIN REACH. STABLE CONDITION AT THIS TIME.
[2022-04-08 08:00] VITALS: BP_SYST 149
[2022-04-08] MEDS: POTASSIUM CHLORIDE 20 MEQ TAB.PRT.SR PO SCH ×2 (09:18→21:07)
[2022-04-08] MEDS: ASPIRIN 81 MG TABLET(ECOTRIN) PO SCH (09:18)
[2022-04-08] MEDS: CARVEDILOL 12.5 MG TABLET (COREG) PO SCH ×2 (09:19→21:06)
[2022-04-08] MEDS: amLODIPine BESYLATE 10 MG TABLET PO SCH (09:19)
[2022-04-08] MEDS: DOXYCYCLINE HYCLATE 100 MG CAPSULE PO SCH ×2 (09:19→21:07)
[2022-04-08] MEDS: INSULIN GLARGINE 100 UNITS/ML, 10 ML VIAL SUBCUT SCH (09:24)
--- NOTE | 2022-04-08 09:40 | NUR ---
TO MRI: LEFT THE ROOM IN A STABLE CONDITION.
--- NOTE | 2022-04-08 10:05 | NUR ---
FROM MRI: RETURNED FROM MRI IN A STABLE CONDITION.
[2022-04-08] MEDS: INSULIN LISPRO SLIDING SCALE 100 UNITS/ML, 3 ML VIAL (humaLOG) SUBCUT PRN (11:38)
[2022-04-08] MEDS: HONEY WOUND DRESSING 1 EACH TP SCH (11:45)
--- NOTE | 2022-04-08 11:45 | NUR ---
WOUND CARE: WOUND CARE TO THE R LOWER LEG (X3 SITE) BLACK AND NECROTIC. CLEANSE WITH NS, PADDED DRY WITH STERILE GAUZE, APPLIED HYDROGEL AND THERAHONEY STRIP, COVERED WITH FOAM, WRAP WITH GAUZE WRAP AND SECURE WITH KERLIX. NO DRAINAGE NOTED. MILD FOUL SMELL NOTED.
[2022-04-08 12:00] VITALS: BP_SYST 136
[2022-04-08] MEDS ORDERED: LOSA25TA3 PO (13:30)
[2022-04-08] MEDS ORDERED: INSU100V9 SUBCUT (13:30)
[2022-04-08] MEDS ORDERED: Potassium Chloride PO (13:30)
[2022-04-08] MEDS ORDERED: Aspirin Ec PO (13:30)
[2022-04-08] MEDS ORDERED: COR12.5 PO (13:30)
[2022-04-08 16:00] VITALS: BP_SYST 149
--- NOTE | 2022-04-08 17:06 | NUR ---
INSULIN SELF CHECK AND ADMINISTRATION: PER PATIENT, HE IS WELL AWARE ON HOW TO SELF CHECK BS VIA MACHINE AND SELF INJECT INSULIN. PATIENT HAS A BS MACHINE AT HOME AND GIVE HIMSELF INSULIN. EXPLAINED AND DEMONSTRATE TO PATIENT HOW TO DRAW INSULIN FROM VIAL USING INSULIN SYRINGE. PATIENT ATTEMPTED TO DEMONSTRATE PROPER AMOUNT OF INSULIN FROM VIAL BUT FAILED (EX: 2U INSULIN) X 3. PATIENT CONTINUE TO DRAW TOO MUCH INSULIN DUE TO POOR EYESIGHTS. MADE AWARE TO PATIENT TO CALL HIS TO COME IN THE MORNING SO THAT SHE CAN ALSO BE TAUGHT. PATIENT IS NOT SAFE TO DRAW INSULIN FROM VIAL. MADE PATIENT AWARE AND VERBALIZED UNDERSTANDING. WILL ENDORSE TO ENAMEL PULVERIZER NURSE AND CONT. WITH EDUCATION (PATIENT SELF DEMONSTRATION).
--- NOTE | 2022-04-08 18:30 | NUR ---
CLOSING NOTES: PATIENT IS RESTING IN BED QUIETLY, TRYING TO EAT HIS DINNER. NO ADDITIONAL DISTRESS NOTED. ALL NEEDS MET. STABLE CONDITION AT THIS TIME.
--- NOTE | 2022-04-08 19:37 | NUR ---
Nutrition F/U: Admitting Diagnosis: Uncontrolled DM/blurred vision Reviewed Pertinent Medical/Surgical Hx: Medical Record; Patient Medical History Comment: PMH: DM, HTN, and nephrotic syndrome per physician notes Per EMR review, pt presented to ER for sudden loss of vision; code stroke was called; BG in the ER was very high; pt was confused and could not give futher information. Later, pt was assessed for TIA versus CVA, hyperglycemia, DM, HTN, nephrotic syndrome, and non-compliance. Pt was assessed by teleneuro, at which time was found to have acute bilat vision loss in setting of severe hyperglycemia -- bilat posterior circulation stroke very unlikely Subjective Information: Nutrition Consult received 04/07/22 at [address] rounded to patient room and s/w patient at bedside. RD discussed reason for visit, wounds, ONS and supplements. Patient verbalized agreement for Glucerna BID (no cathie) and Saeed BID. Patient endorses good appetite today and was seen with dinner tray in front of him, just starting to eat. Per EMR, pt noted with 85% average PO intake. Per RD chart review, patient with black necrotic wounds on right leg and knee. Patient requested nutrition education on CCHO, low Na diet. RD discussed diet education and provided patient with multiple Egyptian handouts to discussed with his . Patient verbalized understanding. All questions answered by RD. Current Diet Order/Nutrition Support: Consistent CHO, 2gNa x 3 days Patient/Significant Other Able To Verbalize Education Provided Indicated ([facility], 2gNa on 04/08) Pertinent Medications: 04/08 - Coreg, Glipizide, K-Dur, SSI, Cozaar, Apresoline Pertinent Labs Drawn 04/08 - BUN 22 H, BG 69 L, POC BG 78 WNL; 162 H; 186 H, Ca 8.2 L; LDL/HDL/TG WNL Height (Feet) 5 feet Height (Inches) 8.00 inches Weight (Pounds) 150 pounds Weight (Calculated Kilograms) 68.644444 kilograms Patient Weight 68.039 kg Body Mass Index 22.80 kg/m2 %IBW 97 [place]/Adjusted Body Weight 154#/70 kg Recent Weight Change Unable to verify Weight Status Appropriate Food Allergies No Estimated Energy Expenditure (kcals/day) 4260-1224 (25-30 kcal/kg CBW d/t adult maintenance) Estimated Protein Required (g/day) 55-68 (0.8-1 gm/kg CBW d/t adult maintenance) Estimated Fluid Required (l/day) 2-2.4 (30-35 ml/kg CBW d/t adult maintenance) Problem/Etiology/Signs/Symptoms * Altered nutrition-related labs R/T endocrine dysfunction AEB elevated BG/POC BG lab values (On-going) * Food and nutrition-related knowledge deficit r/t Consistent CHO and 2gNa diets a/e/b patient requesting/receiving nutrition education 04/08/22 (New) Expected Outcomes/Goals - Monitor appetite and PO intakes w/ goal of pt meeting >75% of estimated nutritional needs, labs trending WNL, normal GI function, and skin integrity/wt maintenance Dietitian Recommendations * Continue CCHO, 2gm Na diet * Glucerna BID, Saeed BID (ONS yields 440 kcals, 20g PRO) * Recommend wound care supplements: daily MVI, 250mg VIT C BID, 220mg ZnSO4 BID x 14 days High Risk: F/U in 2-3days
[2022-04-08 20:00] VITALS: BP_SYST 150
--- NOTE | 2022-04-08 20:01 | NUR ---
Dietitian Recommendations * Continue Consistent CHO, 2gm Na diet * Glucerna BID, Saeed BID (ONS yields 440 kcals, 20g PRO) * Recommend wound care supplements: daily MVI, 250mg VIT C BID, 220mg ZnSO4 BID x 14 days Please refer to nutrition F/U for details, thanks! CC, MPH, RDN
[2022-04-08] MEDS: LOSARTAN POTASSIUM 25 MG TABLET PO SCH (21:07)
--- NOTE | 2022-04-08 22:50 | NUR ---
PATIENT BS 157, ORDER REQIUIRES 2 UNITS OF INSULIN. PATIENT REFUSED AT THIS TIME STATED HE WILL WAIT UNTIL IN THE MORNING.
[2022-04-09] VITALS: BP_SYST 152
--- NOTE | 2022-04-09 05:31 | NUR ---
PATIENT IS CURRENTLY IN BED RESTING, NO C/O PAIN DURING THIS SHIFT. PATIENT TOOK ALL HS MEDS. PATIENT WOUNDS TO RLE, WOUND CARE CONSULT COMPLETED, VSS.
[2022-04-09 08:00] VITALS: BP_SYST 164
[2022-04-09] MEDS ORDERED: INSULIN GLARGINE 100 UNITS/ML, 10 ML VIAL SUBCUT SCH (09:00)
[2022-04-09] MEDS: DOXYCYCLINE HYCLATE 100 MG CAPSULE PO SCH (09:26)
[2022-04-09] MEDS: POTASSIUM CHLORIDE 20 MEQ TAB.PRT.SR PO SCH ×2 (09:27→22:24)
[2022-04-09] MEDS: ASPIRIN 81 MG TABLET(ECOTRIN) PO SCH (09:28)
[2022-04-09] MEDS: CARVEDILOL 12.5 MG TABLET (COREG) PO SCH ×2 (09:28→22:25)
[2022-04-09] MEDS: amLODIPine BESYLATE 10 MG TABLET PO SCH (09:28)
[2022-04-09 11:45] VITALS: BP_SYST 143
[2022-04-09] MEDS: HONEY WOUND DRESSING 1 EACH TP SCH (12:30)
[2022-04-09] MEDS ORDERED: BENZONATATE 100 MG CAPSULE (TESSALON) PO PRN (14:15)
[2022-04-09 15:44] VITALS: BP_SYST 139
--- NOTE | 2022-04-09 16:14 | NUR ---
COUGH AND FEVER LAST NIGHT: MADE AWARE TO DR CATALAN THAT PATIENT HAD A FEVER AND COUGH LAST NIGHT. LOW GRADE FEVER TODAY OF 100.2 AND PRODUCTIVE COUGH. MD ORDERED COVID TEST, COUGH SYRUP, AND CXRAY. ALSO MADE AWARE TO MD THAT PATIENT FAIL DRAWING INSULIN DUE TO POOR EYESIGHT.
[2022-04-09] MEDS ORDERED: guaiFENesin/DEXTROMETHORPHAN 118 ML PO PRN (16:15)
--- NOTE | 2022-04-09 16:45 | NUR ---
BS 75: GAVE 1 CUP OF APPLE JUICE 120ML. WILL RECHECK BS. DENIES S/SX OF HYPOGLYCEMIA.
--- NOTE | 2022-04-09 17:30 | NUR ---
BS 63: NO C/O S/SX OF HYPOGLYCEMIA. DINNER TRAY AT THE BEDSIDE. ENCOURAGE TO PATIENT TO EAT DINNER JENNIFER.
[2022-04-09] MEDS: guaiFENesin/DEXTROMETHORPHAN 10 ML UDC PO PRN (17:41)
[2022-04-09] MEDS ORDERED: AZITHROMYCIN 500 MG in NS 250 ML IV SCH (18:00)
--- NOTE | 2022-04-09 18:45 | NUR ---
CLOSING NOTES: PATIENT IS RESTING IN BED QUIETLY AND ATE ALL HIS DINNER. NO ADDITIONAL DISTRESS NOTED. ALL NEEDS MET. STABLE CONDITION AT THIS TIME.
[2022-04-09 20:00] VITALS: BP_SYST 147
[2022-04-09] MEDS: LOSARTAN POTASSIUM 25 MG TABLET PO SCH (22:24)
[2022-04-10] VITALS: BP_SYST 150
--- NOTE | 2022-04-10 03:42 | NUR ---
PATIENT IN BED RESTING, DENIES ALL PAIN, VSS, INSTRUCTED ON IV ABT AND ALL HS MEDS. PATIENT VERBALIZED UNDERSTANDING. PATIENT BS 100 AT BEGINNING OF SHIFT. PATIENT ON AIRBORNE/DROPLET PRECAUTIONS PENDING COVID 19 RESULTS. PATIENT CALM COOPERATIVE, ABLE TO MAKE NEEDS KNOWN. PATIENT ON RA, KAT FA PIV, NO NEW WOUNDS. PATIENT WITH DIABETIC ULCER WOUNDS TO RLE.
[2022-04-10 07:09] LABS: BASOPHILS % (AUTO) 0.5 % (0.0-2.0); EOSINOPHILS % (AUTO) 0.1 % (0.0-4.0); HEMATOCRIT 23.6 % (36-54); HEMOGLOBIN 8.4 g/dL (14.0-18.0); LYMPHOCYTES # (AUTO) 1.1 K/uL (1.0-5.5); MEAN CORPUSCULAR HEMOGLOBIN 29 pg (27-31); MEAN CORPUSCULAR HGB CONC 36 % (32-36); MEAN CORPUSCULAR VOLUME 83 fL (79.0-98.0); MONOCYTES # (AUTO) 1.3 K/uL (0.0-1.0); MONOCYTES % (AUTO) 13.2 % (1.7-9.3); NEUTROPHILS # (AUTO) 7.4 K/uL (1.8-7.7); NEUTROPHILS % (AUTO) 75.2 % (40.0-70.0); PLATELET COUNT (AUTO) 178 K/uL (130-430); RED BLOOD CELL COUNT(AUTO) 2.85 MIL/uL (4.2-6.2); RED CELL DISTRIBUTION WIDTH 16.1 % (9.0-15.0); WHITE BLOOD COUNT (AUTO) 9.9 K/uL (4.8-10.8)
--- NOTE | 2022-04-10 07:30 | NUR ---
OPENING NOTES: PATIENT IS RESTING IN BED QUIETLY. AAOX4 ABLE TO MAKE NEEDS KNOWN. DENIES DISTRESS OR PAIN AT THIS TIME. EXPLAINED POC AND PATIENT VERBALIZED UNDERSTANDING. BED IN LOW AND LOCK POSITION. CALL LIGHT AND BEDSIDE TABLE WITHIN REACH. CURRENTLY ON DROPLET PRECAUTION DUE TO PENDING COVID RESULT. STABLE CONDITION AT THIS TIME
[2022-04-10 08:00] VITALS: BP_SYST 144
--- NOTE | 2022-04-10 08:00 | NUR ---
02 SAT 89% ROOM AIR: APPLIED 2L NC 02 SAT 98%. DENIES DISTRESS AT THIS TIME.
[2022-04-10] MEDS: ASPIRIN 81 MG TABLET(ECOTRIN) PO SCH (08:36)
[2022-04-10] MEDS: amLODIPine BESYLATE 10 MG TABLET PO SCH (08:38)
[2022-04-10] MEDS: POTASSIUM CHLORIDE 20 MEQ TAB.PRT.SR PO SCH ×2 (08:38→21:56)
[2022-04-10] MEDS: CARVEDILOL 12.5 MG TABLET (COREG) PO SCH ×2 (08:39→21:58)
[2022-04-10] MEDS: guaiFENesin/DEXTROMETHORPHAN 10 ML UDC PO PRN (08:48)
[2022-04-10] MEDS: INSULIN GLARGINE 100 UNITS/ML, 10 ML VIAL SUBCUT SCH (08:53)
[2022-04-10] MEDS: HONEY WOUND DRESSING 1 EACH TP SCH (10:09)
--- NOTE | 2022-04-10 10:34 | NUR ---
CONSULTATION PAGED/CALLED Reason for Consultation: []PNA Person Who was Notified: []did not get the name Consulting Physician: [] Dr. Ranjith Altman Pond Worker Specialty: []Infectious Ordering Physician: []tommy Stewart
[2022-04-10 11:51] LABS: ALBUMIN 2.4 g/dL (3.4-4.8); CALCIUM 7.4 mg/dL (8.4-11.0); CREATININE 1.54 mg/dL (0.55-1.30); TOTAL BILIRUBIN 0.2 mg/dL (0.0-1.0)
[2022-04-10 15:15] VITALS: BP_SYST 115
[2022-04-10] MEDS: PIPERACILLIN/TAZO 4.5GM/DEX-IS 100 ML IV SCH ×2 (15:39→22:00)
[2022-04-10 17:31] VITALS: BP_SYST 109
[2022-04-10] MEDS: INSULIN LISPRO SLIDING SCALE 100 UNITS/ML, 3 ML VIAL (humaLOG) SUBCUT PRN ×2 (18:11→22:17)
--- NOTE | 2022-04-10 18:25 | NUR ---
CLOSING NOTES: PATIENT IS RESTING IN BED QUIETLY TRYING TO EAT HIS DINNER. NO ADDITIONAL DISTRESS NOTED. ALL NEEDS MET. STABLE CONDITION AT THIS TIME.
--- NOTE | 2022-04-10 20:01 | NUR ---
Nila SPOKE WITH CHA BARRETO NOTIFIED COVID TEST (PCR) WAS NEGATIVE. INSTRUCTED OK TO DISCONTINUE ISOLATION PRECAUTIONS.
[2022-04-10] MEDS: LOSARTAN POTASSIUM 25 MG TABLET PO SCH (21:59)
[2022-04-11] VITALS: BP_SYST 131
--- NOTE | 2022-04-11 05:07 | NUR ---
PATIENT IN BED RESTING, DENIED ALL PAIN DURING THIS SHIFT. PATIENT TOLERATED NEW IV ABT ZOSYN. PATIENT PULLED OUT RIGHT FA PIV 22G. PATIENT O2 SAT ARE WNL ON RA. PATIENT BS WAS ELEVATED AT HS S/S INSULIN GIVEN. PATIENT COVID 19 TEST WAS NEGATIVE PATIENT NO LONGER ON ISOLATION.
[2022-04-11] MEDS: PIPERACILLIN/TAZO 4.5GM/DEX-IS 100 ML IV SCH ×3 (06:07→22:02)
[2022-04-11 06:59] LABS: BASOPHILS % (AUTO) 0.8 % (0.0-2.0); EOSINOPHILS # (AUTO) 0.1 K/uL (0.0-0.4); EOSINOPHILS % (AUTO) 1.5 % (0.0-4.0); HEMATOCRIT 23.9 % (36-54); HEMOGLOBIN 8.3 g/dL (14.0-18.0); LYMPHOCYTES % (AUTO) 16.2 % (20.5-51.5); MEAN CORPUSCULAR HEMOGLOBIN 29 pg (27-31); MEAN CORPUSCULAR HGB CONC 35 % (32-36); MEAN CORPUSCULAR VOLUME 84 fL (79.0-98.0); MONOCYTES # (AUTO) 0.9 K/uL (0.0-1.0); MONOCYTES % (AUTO) 13.6 % (1.7-9.3); NEUTROPHILS # (AUTO) 4.2 K/uL (1.8-7.7); NEUTROPHILS % (AUTO) 67.9 % (40.0-70.0); PLATELET COUNT (AUTO) 176 K/uL (130-430); RED BLOOD CELL COUNT(AUTO) 2.86 MIL/uL (4.2-6.2); RED CELL DISTRIBUTION WIDTH 16.5 % (9.0-15.0); WHITE BLOOD COUNT (AUTO) 6.2 K/uL (4.8-10.8)
--- NOTE | 2022-04-11 07:25 | NUR ---
receive the patinet from the spray machine tender in a stable condition with admitting diagnosis of diabetic ketoacidosis aox4 . no complain of pain at this time . no sign and symptoms of respiratory distress . will continue to monitor
[2022-04-11 07:27] LABS: CALCIUM 7.9 mg/dL (8.4-11.0); CREATININE 1.79 mg/dL (0.55-1.30)
[2022-04-11] MEDS ORDERED: NACL 0.9% 1,000 ML IV SCH (08:15)
[2022-04-11] MEDS: ASPIRIN 81 MG TABLET(ECOTRIN) PO SCH (08:58)
[2022-04-11] MEDS: POTASSIUM CHLORIDE 20 MEQ TAB.PRT.SR PO SCH (08:59)
[2022-04-11] MEDS: amLODIPine BESYLATE 10 MG TABLET PO SCH (08:59)
[2022-04-11] MEDS: CARVEDILOL 12.5 MG TABLET (COREG) PO SCH ×2 (09:00→22:01)
[2022-04-11] MEDS: INSULIN GLARGINE 100 UNITS/ML, 10 ML VIAL SUBCUT SCH (09:03)
[2022-04-11] MEDS: HONEY WOUND DRESSING 1 EACH TP SCH (09:10)
[2022-04-11] MEDS ORDERED: LOSA25TA3 PO (09:53)
--- NOTE | 2022-04-11 10:37 | NUR ---
PATIENT AMBULATED EARLIER USING THE FWW X 400 FT. SUPERVISED. HE IS SAFE TO CONTINUE TO AMBULATE WITH NURSING SUPERVISION. AND SHOULD USE THE FWW FOR SAFETY. HE DOES NOT NEED FURTHER PHYSICAL THERAPY AT THIS TIME. RECOMMEND FWW FOR HOME USE.
[2022-04-11 12:00] VITALS: BP_SYST 125
[2022-04-11 14:36] VITALS: BP_SYST 126
--- NOTE | 2022-04-11 15:45 | NUR ---
Nutrition F/U Admitting Diagnosis: Uncontrolled DM/blurred vision Reviewed Pertinent Medical/Surgical Hx: Medical Record; Patient Medical History Comment: PMH: DM, HTN, and nephrotic syndrome per physician notes Per EMR review, pt presented to ER for sudden loss of vision; code stroke was called; BG in the ER was very high; pt was confused and could not give further information. Later, pt was assessed for TIA versus CVA, hyperglycemia, DM, HTN, nephrotic syndrome, and non-compliance. Pt was assessed by teleneuro, at which time was found to have acute bilat vision loss in setting of severe hyperglycemia -- bilat posterior circulation stroke very unlikely Subjective Information: RD met w/ pt at bedside earlier this afternoon. Pt was pleasant and short w/ answers to RD verbal interview. Lunch tray seen less than 50% eaten -- pt preferred to only consume lentil soup and fruit cocktail. Pt stated he does not care for fish. RD noted in Comput[employer]. RD offered a turkey sandwich to hold him over before dinner -- pt stated that he received one from his nurse and tolerated that well. Pt denied any N/V/C/D and reported OK appetite. Bedscale wt taken: 177.5# -- unsure of reliability -- doubt 27.5# wt gain since admission (04/04). Per EMR review, PO intakes very good, 94% average x last 8 meal records; pt is on 2 L O2 via NC; LBM x2 04/11. Pt would benefit from supplementation to optimize nutritional status and wound healing. Current Diet Order/Nutrition Support: CCHO, 2 gm Na x6 days Patient/Significant Other Able To Verbalize Education Provided Indicated (provided by RD 04/08) Pertinent Medications: piperacillin/tazobactam, lantus, coreg, glipizide, SSI Pertinent Labs: BUN 37 H, BG 105 H, POC BG 121 H, Ca 7.9 L Height (Feet) 5 feet Height (Inches) 8.00 inches Weight (Pounds) 150 pounds -- seemingly stable since 04/05 Patient Weight 68.039 kg Body Mass Index 22.80 kg/m2 %IBW 97 [place]/Adjusted Body Weight 154#/70 kg Recent Weight Change Unable to verify Weight Status Appropriate Food Allergies No NEW Estimated Energy Expenditure (kcals/day) 0298-5320 (30-35 kcal/kg CBW d/t wound healing) NEW Estimated Protein Required (g/day) 82-102 (1.2-1.5 gm/kg CBW d/t wound healing) Estimated Fluid Required (l/day) 2-2.4 (30-35 ml/kg CBW d/t adult maintenance) Problem/Etiology/Signs/Symptoms * Altered nutrition-related labs R/T endocrine dysfunction AEB elevated BG/POC BG lab values (*Ongoing) * Food and nutrition-related knowledge deficit r/t Consistent CHO and 2gNa diets a/e/b patient requesting/receiving nutrition education 04/08/22 (*Ongoing) Expected Outcomes/Goals - Monitor appetite and PO intakes w/ goal of pt meeting >75% of estimated nutritional needs, labs trending WNL, normal GI function, and skin integrity/wt maintenance Dietitian Recommendations * CCHO, 2 gm Na, Glucerna BID, Saeed BID (supplements yield 620 kcal/day, 25 gm protein/day) * Consider daily MVI, 250mg VIT C BID, 220mg ZnSO4 BID x14 days Low Risk: F/U in 7 days
--- NOTE | 2022-04-11 15:59 | NUR ---
Dietitian Recommendations * CCHO, 2 gm Na, Glucerna BID, Saeed BID (supplements yield 620 kcal/day, 25 gm protein/day) * Consider daily MVI, 250mg VIT C BID, 220mg ZnSO4 BID x14 days LP, MS, RD Please refer to Nutrition F/U for details.
--- NOTE | 2022-04-11 18:11 | NUR ---
will endorse to fast food shift supervisor rn for continuity of care
[2022-04-11 20:00] VITALS: BP_SYST 129
--- NOTE | 2022-04-11 20:49 | NUR ---
PAGED PAGED DOCTOR HOSSEIN DAVIS
[2022-04-11] MEDS ORDERED: LOSARTAN POTASSIUM 25 MG TABLET PO SCH (21:00)
[2022-04-11] MEDS: INSULIN LISPRO SLIDING SCALE 100 UNITS/ML, 3 ML VIAL (humaLOG) SUBCUT PRN (22:10)
[2022-04-12] VITALS: BP_SYST 118
--- NOTE | 2022-04-12 01:27 | NUR ---
2024: SPOKE WITH DR. FLYNN-SAYED: PATIENT IS CLEARED FOR DC FROM HIS STAND POINT. PATIENT NEEDS TO CONTINUE CURRENT LANTUS AND GLIPIZED DOSES THAT HE IS TAKING HERE. (LANTUS 8 UNITS AND GLIPIZIDE 5MG)
--- NOTE | 2022-04-12 02:35 | NUR ---
PATIENT IN BED RESTING, EYES CLOSED, NO S/S OF PAIN OR DISTRESS NOTED AT THIS TIME
--- NOTE | 2022-04-12 05:30 | NUR ---
PATIENT IN BED RESTING, EYES CLOSED, NO S/S OF PAIN OR DISTRESS NOTED AT THIS TIME. PATIENT C/O NO PAIN DURING THIS SHIFT. PATIENT PIV TO LEFT FA INTACT AND PATENT. PATIENT PERSISTENT ABOUT DISCHARGE TODAY HE HAS AN INTERVIEW WITH IMMIGRATION ON THURSDAY IN [place]
[2022-04-12] MEDS: PIPERACILLIN/TAZO 4.5GM/DEX-IS 100 ML IV SCH (06:23)
[2022-04-12] MEDS: INSULIN LISPRO SLIDING SCALE 100 UNITS/ML, 3 ML VIAL (humaLOG) SUBCUT PRN ×2 (06:27→12:45)
[2022-04-12 08:30] VITALS: BP_SYST 136
[2022-04-12 08:35] VITALS: BP_SYST 136
[2022-04-12 08:46] LABS: BASOPHILS % (AUTO) 0.2 % (0.0-2.0); EOSINOPHILS # (AUTO) 0.1 K/uL (0.0-0.4); HEMATOCRIT 23.3 % (36-54); LYMPHOCYTES # (AUTO) 0.9 K/uL (1.0-5.5); LYMPHOCYTES % (AUTO) 17.3 % (20.5-51.5); MEAN CORPUSCULAR HEMOGLOBIN 29 pg (27-31); MEAN CORPUSCULAR HGB CONC 34 % (32-36); MEAN CORPUSCULAR VOLUME 84 fL (79.0-98.0); MONOCYTES # (AUTO) 0.7 K/uL (0.0-1.0); MONOCYTES % (AUTO) 13.4 % (1.7-9.3); NEUTROPHILS # (AUTO) 3.7 K/uL (1.8-7.7); NEUTROPHILS % (AUTO) 68.1 % (40.0-70.0); PLATELET COUNT (AUTO) 189 K/uL (130-430); RED BLOOD CELL COUNT(AUTO) 2.79 MIL/uL (4.2-6.2); RED CELL DISTRIBUTION WIDTH 16.2 % (9.0-15.0); WHITE BLOOD COUNT (AUTO) 5.5 K/uL (4.8-10.8)
[2022-04-12 09:02] LABS: CALCIUM 7.9 mg/dL (8.4-11.0); CREATININE 1.83 mg/dL (0.55-1.30)
[2022-04-12 12:00] VITALS: BP_SYST 125
[2022-04-12] MEDS: amLODIPine BESYLATE 10 MG TABLET PO SCH (12:53)
[2022-04-12] MEDS: CARVEDILOL 12.5 MG TABLET (COREG) PO SCH (12:54)
[2022-04-12] MEDS: ASPIRIN 81 MG TABLET(ECOTRIN) PO SCH (12:54)
[2022-04-12] MEDS: INSULIN GLARGINE 100 UNITS/ML, 10 ML VIAL SUBCUT SCH (12:57)
[2022-04-12 15:18] VITALS: BP_SYST 125
[2022-04-12] MEDS: HONEY WOUND DRESSING 1 EACH TP SCH (15:39)
--- NOTE | 2022-04-12 15:44 | NUR ---
Pt is having to leave town to [place] for immigration status so other arrangement for healthcare nt made at this time. Stated he will make arrangements once he is able to return.
--- NOTE | 2022-04-12 15:44 | NUR ---
D/C Patient Patient given medication reconciliation form and D/C instructions. Exit Care provided. Patient verbalized understanding. MD discussed with patient the results and treatment provided. Ambulatory with steady gait for discharge to home. Patient in stable condition, ID band removed. IV catheter removed, intact and dressing applied, no active bleeding. Rx of new medication given. Patient educated on pain management. All belongings sent with patient. Pt has been instructed to follow up with his primary MD for wound care. He refused wound care prior to DC. He was taken to the front lobby via W/C with staff to meet his with private vehicle. Pt stable at time of DC.
[2022-04-12 16:11] VITALS: BP_SYST 134
--- NOTE | 2022-04-14 14:23 | NUR ---
Cement Side Laster SCREEN PRINTING LOADER UNLOADER introduced self to pt who had been at [facility] on 03/19 most recently. Pt. stated he was feeling better. SCREEN PRINTING LOADER UNLOADER asked pt. about medication compliance. Pt. stated he takes his meds as prescribed. Pts Gail freeman, was the professor of physical education and said her dad takes his meds, he just does not have the best diet. Pt. stated he drinks Horchata and Jaimica and does not eat the right foods. Lissette was going to ask to speak to a global marketing intern at the hospital. Pt. agreed to watch his intake of food and drinkgs. Pt. stated he knows his health is a concern and tries to eat and drink the right foods. SCREEN PRINTING LOADER UNLOADER asked pt. about his meds. Pt. stated he just missed a dose because he just forgot and go distracted. SCREEN PRINTING LOADER UNLOADER shared with him and lebron that they can purchase a pill box with two dividers per day for an am and pm dose. Dtr stated shw will look for one. Pt. agreed to speak to a global marketing intern and eat better. SCREEN PRINTING LOADER UNLOADER will remain available as needed.
== END 2022-04-12 15:44 | disposition home or self-care (01) | DRG 420 ==
LOC: SED 20:33 → STU 22:47 → UNDOADMIN 22:47 → SIC 23:24 → SMU 04-06 01:15
PROVIDERS: ADMIT Internal Medicine; ATTEND Internal Medicine
DX: E11.65 Type 2 diabetes mellitus with hyperglycemia (principal); N17.0 Acute kidney failure with tubular necrosis; G93.41 Metabolic encephalopathy; E43 Unspecified severe protein-calorie malnutrition; J18.9 Pneumonia, unspecified organism; G45.9 Transient cerebral ischemic attack, unspecified; E11.22 Type 2 diabetes mellitus with diabetic chronic kidney disease; L97.919 Non-pressure chronic ulcer of unspecified part of right lower leg with unspecified severity; E87.1 Hypo-osmolality and hyponatremia; D64.9 Anemia, unspecified; Z20.822 Contact with and (suspected) exposure to COVID-19; E87.6 Hypokalemia; J06.9 Acute upper respiratory infection, unspecified; I12.9 Hypertensive chronic kidney disease with stage 1 through stage 4 chronic kidney disease, or unspecified chronic kidney disease; N18.9 Chronic kidney disease, unspecified; Z79.2 Long term (current) use of antibiotics; Z79.4 Long term (current) use of insulin; Z79.899 Other long term (current) drug therapy; Z87.441 Personal history of nephrotic syndrome; Z79.82 Long term (current) use of aspirin; Z91.199 Patient's noncompliance with other medical treatment and regimen due to unspecified reason; Z68.22 Body mass index [BMI] 22.0-22.9, adult
CPT/HCPCS: 36415; 36600; 70450-TC; 70496; 70498; 70551; 71045; 71046-TC; 76376; 76770; 80048; 80053; 80061; 80307; 81003; 82009; 82803-TC; 82962; 83036; 83735; 83930; 84100; 84156; 84436; 84443; 84484; 85025; 85610-TC; 85730-TC; 86886; 86900; 86901; 87040; 87081; 93005; 96361; 96374; 96375; 97116-GP; 97530-GP; 99285; G0378; J0360; J0456; J1815; J1956; J2270; J2405; J2543; J7030; J7050; Q9967; U0003